=== PATIENT | male | born 1945 | race Caucasian/White ===

== ENCOUNTER 2020-11-12 12:49 | Emergency (ER) | payer MEDICARE, SELFPAY ==
[2020-11-12 12:50] VITALS: BP 120/71; PULSE 46; RESP 18; TEMP 36.8; O2SAT 97; BMI 27.2
--- NOTE | 2020-11-12 14:29 | EKG12_ITS ---
Test Reason : GENERAL ILLNESS Blood Pressure : / mmHG Vent. Rate : 036 BPM Atrial Rate : 250 BPM P-R Int : 000 ms QRS Dur : 108 ms QT Int : 484 ms P-R-T Axes : 000 015 021 degrees QTc Int : 374 ms Atrial fibrillation Poor R wave progression Abnormal ECG Confirmed by ANTONIA LANGFORD, MELONY ([id number]), editorial writer ISRAEL GARCIA ([id number]) on 11/14/2020 10:06:25 AM Referred By: LATA Confirmed By:MELONY KNIGHT MD
--- NOTE | 2020-11-12 14:29 | RAD_ITS ---
History: cough EXAMINATION/TECHNIQUE: XR Chest 1 View: Portable COMPARISON: March 17, 2011 FINDINGS: LINES/DEVICES: None. LUNGS: No consolidation, edema or effusion. Calcified granuloma again noted at the left lung base. No pneumothorax. MEDIASTINUM AND CARDIOVASCULAR STRUCTURES: Cardiac silhouette not enlarged. Central airways and mediastinal contour are unremarkable. BONES AND SOFT TISSUES: Unremarkable. RAD/Chest 1 View (Portable) IMPRESSION: No radiographic evidence of acute cardiopulmonary disease. at 1648 Reported and signed by: Dereck Keen MD Electronically Signed: Dercek Keen MD at 16:47 EDT Tel , Service support ,
[2020-11-12 14:52] VITALS: BP 133/66; PULSE 39; RESP 16; O2SAT 95
--- NOTE | 2020-11-12 15:05 | EX.ED.DYSGE1 ---
HPI History of Present Illness Chief Complaint: General Illness Informant: patient Onset/Context/Timing Onset: Yesterday Context: Gradual Onset Timing: Continuous Quality: Aching Location: Generalized Worsened by: Nothing Relieved by: Nothing Narrative Narrative: Patient presents with headache, nausea, vomiting, myalgias, and arthralgias that have been getting worse since yesterday. Patient is concerned about possible COVID-19. Patient admits to subjective chills but denies any fevers. Patient states he has not been able to keep anything down. Patient also states he has been unsteady on his feet. Patient states he has been aching all over. Patient admits to a headache. Patient denies any chest pain or shortness of breath. [facility] Medical History (Updated 11/12/20 @ 18:[address] Hiram Bower DO) Coronary artery disease Allergy/AdvReac Type Severity Reaction Status Date / Time No Known Allergies Allergy Verified 11/12/20 12:50 Surgical History History of herniorrhaphy Hx of heart artery stent Social History Smoking Status: Former smoker ROS ROS ED Constitutional Constitutional ED: Reports chills and subjective; Denies fever(s) Eyes Eyes: Denies blurry vision or change in vision ENT ENT ED: Denies rhinorrhea or sore throat Cardiovascular Cardiovascular: Denies chest pain or palpitations Respiratory/Chest Respiratory/Chest: Denies cough or dyspnea Gastrointestinal Gastrointestinal: Reports nausea and vomiting Genitourinary Genitourinary ED: Denies dysuria or hematuria Musculoskeletal Musculoskeletal: Reports arthralgias and myalgias; Denies back pain or neck pain Integumentary Denies abscess or rash Neurologic Neurologic: Reports headache(s); Denies weakness Allergic/Immunologic Allergic/Immunologic ED: Denies mouth swelling or urticaria EXAM Physical Exam Const Vital Signs: 11/12/20 12:50 11/12/20 14:52 11/12/20 16:00 Temperature 98.3 F Temperature Source Temporal Pulse Rate 46 L 39 L 41 L Respiratory Rate 18 16 18 Respiratory Effort Normal Respiratory Pattern Normal Blood Pressure 120/71 133/66 H 144/63 H Blood Pressure Mean 87 88 90 Pulse Ox 97 95 96 Oxygen Delivery Method Room Air Room Air Room Air 11/12/20 18:16 Temperature Temperature Source Pulse Rate 40 L Respiratory Rate 18 Respiratory Effort Respiratory Pattern Blood Pressure 140/73 H Blood Pressure Mean Pulse Ox 96 Oxygen Delivery Method Positive well nourished and well developed General Appearance ED: well developed HEENT Reports moist mucous membranes Neck supple and no JVD Resp normal respiratory effort and clear to auscultation bilaterally Cardio regular rate, regular rhythm and no murmurs GI normal to inspection, nondistended, normoactive bowel sounds and non-tender Palpation: soft Extremity normal to inspection General Extremety ED: Negative for edema or tenderness General Extremity: Negative for edema Neuro oriented x3, CN's II-XII intact bilaterally and no sensory deficits noted Sensorium / Orientation: alert Motor Exam: strength 5/5 throughout Psych mental status grossly normal Skin no rashes or lesions noted MDM MDM MDM Narrative Medical decision making narrative: CBC and comprehensive metabolic profile were obtained and were essentially within normal limits. Lactate was normal. High-sensitivity troponin was normal. EKG showed atrial fibrillation with a rate of 36. There are no acute ST or T wave changes. Patient states he has a history of A. fib and history of low heart rate. Patient states this is nothing new for him. Previous EKG dated 03/17/2011 showed a sinus rhythm with a rate of 70. Portable 1 view chest x-ray was obtained. On my interpretation, lung hughes are clear. There is normal cardiac silhouette. Bony thorax is normal. There is no acute process noted. Radiologist also interpreted the x-ray and agrees. COVID-19 rapid antigen was obtained and was negative. Patient was feeling somewhat better on reevaluation. Patient was given a dose of morphine. Patient was instructed to drink plenty of fluids. Patient was instructed to take Tylenol or ibuprofen as needed for any pain or fevers. Patient was instructed to follow-up with his primary care physician in 5 to 7 days. Patient understood and was agreeable with the plan. All questions were answered. Lab Data Attestation: I reviewed the patient's lab results. Labs: Laboratory Results - last 24 hr 11/12/20 11/12/20 11/12/20 15:20 15:30 15:30 WBC 9.1 RBC 4.35 L Hgb 13.5 Hct 41.3 MCV 94.9 H MCH 31.0 MCHC 32.7 RDW Std Deviation 48.1 H RDW Coeff of Stefano 13.7 Plt Count 143 L MPV 10.5 Immature Gran % (Auto) 0.300 Neut % (Auto) 68.3 Lymph % (Auto) 19.8 [place] % (Auto) 11.1 H Eos % (Auto) 0.3 Baso % (Auto) 0.2 Absolute Neuts (auto) 6.2 Absolute Lymphs (auto) 1.80 Nucleated RBC % 0 Sodium 136 Potassium 4.0 Chloride 103 Carbon Dioxide 29.0 Anion Gap 4 L BUN 18 Creatinine 1.22 Estim Creat Clear Calc 55.66 Est GFR (MDRD) Af Amer 74 Est GFR (MDRD) Non-Af 61 BUN/Creatinine Ratio 14.8 Glucose 104 Lactic Acid 0.9 Calcium 9.0 Total Bilirubin 1.80 H AST 14 L ALT 32 Alkaline Phosphatase 63 Troponin I High Sens 14 Total Protein 7.1 Albumin 3.8 Globulin 3.3 Albumin/Globulin Ratio 1.2 Radiography Chest X-Ray - ED: 1 View, Read by ED Physician, Read by Radiologist and Normal Diagnostic Testing: Radiology Impression Chest X-Ray 11/12/20 14:29 IMPRESSION: No radiographic evidence of acute cardiopulmonary disease. at 1648 Reported and signed by: Dereck Keen MD Electronically Signed: Dereck Keen MD at 16:47 EDT Tel , Service support , EKG Initial EKG: Attestation: I personally reviewed and interpreted this EKG as follows: Interpretation: No Acute Injury Pattern and Atrial Fibrillation (36) Prior EKG tracings: available for review Prior: Changed (Atrial fibrillation is new compared to previous EKG dated 03/17/2011) Discharge Plan Triage Chief Complaint: General Illness ED Provider: Hiram Bower Dx/Rx/DC Orders Clinical Impression: Viral illness Instructions: ED Viral Syndrome (Adult) Primary Care Provider: Imer Cruz Referrals: Imer Cruz MD [Primary Care Provider] - 3-5 Days Disposition Disposition: Home, Self Care Discharge Date/Time: 11/12/20 18:22
[2020-11-12 15:46] LABS: Absolute Neutrophil Count 6.2 X10^3/uL (2.0-7.7); Basophil# 0.02 X10^3/uL; Basophil% 0.2 % (0-1); Eosinophil# 0.03 X10^3/uL; Eosinophils% 0.3 % (0-5); Hematocrit 41.3 % (40-54); Hemoglobin 13.5 g/dL (13.0-16.5); Lymphocyte % 19.8 % (19-41); Mean Corp Hgb Conc 32.7 g/dL (32-36); Mean Corpuscular Volume 94.9 fL (80-94); Mean Platelet Vol. 10.5 fl (6.2-12.0); Monocyte# 1.01 X10^3/uL; Monocyte% 11.1 % (0-10); NRBC Flagged by Analyzer 0 % (0-5); Neutrophil # 6.21 X10^3/uL (2.7-7.7); Neutrophil % 68.3 % (47-70); Platelet Count 143 K/mm3 (150-450); RBC Distribution Width CV 13.7 % (11.6-14.6); RBC Distribution Width SD 48.1 fl (35.1-43.9); Red Blood Count 4.35 M/mm3 (4.6-6.2); White Blood Count 9.1 K/mm3 (4.4-11.0)
[2020-11-12 16:00] VITALS: BP 144/63; PULSE 41; RESP 18; O2SAT 96
[2020-11-12 16:06] LABS: Lactic Acid 0.9 mmol/L (0.4-1.9)
[2020-11-12 16:07] LABS: ALB/GLOB Ratio 1.2 RATIO (0.9-2.4); AST(SGOT) 14 U/L (15-37); Alanine Aminotransfer ALT/SGPT 32 U/L (16-61); Albumin, Serum 3.8 g/dL (3.2-5.0); Alkaline Phosphatase 63 U/L (45-117); Anion Gap 4 (5-15); BUN 18 mg/dL (7-18); BUN/Creat Ratio 14.8 RATIO (10-20); Chloride 103 mmol/L (98-107); Creatinine, Serum 1.22 mg/dL (0.70-1.30); EST Glomerular Filtration Rate 61 mL/min (>60); Est Glom Filt Rate - Afr Amer 74 mL/min (>60); Estimated Creatinine Clearance 55.66 ml/min; Globulin 3.3 g/dL (2.2-4.2); Glucose 104 mg/dL (74-106); Protein, Total 7.1 g/dL (6.4-8.2); Sodium Level 136 mmol/L (136-145); Troponin-I HS 14 pg/mL (3.0-78.0)
[2020-11-12] MEDS: Morphine 4 MG/ML Syringe IV (18:11)
[2020-11-12 18:16] VITALS: BP 140/73; PULSE 40; RESP 18; O2SAT 96
== END 2020-11-12 18:22 | disposition home or self-care (01) ==
PROVIDERS: Emergency Provider Emergency Medicine; PCP Family Medicine
DX: B34.9 Viral infection, unspecified (principal); I25.10 Atherosclerotic heart disease of native coronary artery without angina pectoris; Z95.5 Presence of coronary angioplasty implant and graft; Z87.891 Personal history of nicotine dependence
CPT/HCPCS: 36415; 71045; 80053; 83605; 84484; 85025; 87040; 87426; 93005; 96374; 99284; A4216

== ENCOUNTER 2020-11-13 10:30 | Observation (INO) | payer MEDICARE, SELFPAY ==
[2020-11-13] VITALS (9 sets, daily range): BP systolic 116–157; BP diastolic 63–84; PULSE 41–56; RESP 15–20; TEMP 36.4–36.6; O2SAT 95–100; BMI 27.6; BMI 26.8
--- NOTE | 2020-11-13 10:47 | EKG12_ITS ---
Test Reason : Blood Pressure : / mmHG Vent. Rate : 045 BPM Atrial Rate : 079 BPM P-R Int : 000 ms QRS Dur : 108 ms QT Int : 466 ms P-R-T Axes : 000 005 052 degrees QTc Int : 403 ms Atrial fibrillation Low voltage QRS (Limb Leads) Inferior infarct , age undetermined , cannot be excluded Poor R wave progression Anterior CO, age undetermined, cannot be excluded Abnormal ECG Confirmed by ANTONIA LANGFORD, MELONY ([id number]), material expeditor ISRAEL GARCIA ([id number]) on 11/18/2020 9:42:05 AM Referred By: TOMA/AMBAR Confirmed By:MELONY KNIGHT MD
--- NOTE | 2020-11-13 10:47 | CT_ITS ---
History: confusion TECHNIQUE: Routine carotid CT angiogram protocol was performed without and with IV contrast. In addition, images were obtained of the [place] of [place]. Nascet criteria using the distal ICAs for comparison were used for evaluation of stenoses. 3D reconstructions were reviewed. A radiation dose optimization technique was used for this scan. IV Contrast dosage and agent: IV 100mL [id number] COMPARISON: None FINDINGS: --NECK: Mild calcific plaquing at both carotid bifurcations AORTIC ARCH AND BRANCHES: Normal anatomy, patent. RIGHT CCA: No occlusion, significant stenosis or dissection. RIGHT ICA: No occlusion, significant stenosis or dissection. LEFT CCA: No occlusion, significant stenosis or dissection. LEFT ICA: No occlusion, significant stenosis or dissection. RIGHT VERTEBRAL ARTERY: No occlusion, significant stenosis or dissection. LEFT VERTEBRAL ARTERY: No occlusion, significant stenosis or dissection. NECK SOFT TISSUES: Unremarkable. LUNG APICES: Small emphysematous blebs noted within the lung apices. BONES: Unremarkable. --HEAD: --Anterior circulation: ICAs: No significant stenosis at the intracranial/visualized segments. ACAs: No significant stenosis at the visualized segments. ACOM: Present. MCAs: No significant stenosis at the visualized segments. --Posterior circulation: PCOMs: Present on the right lodge attendant: No significant stenosis at the visualized segments. BASILAR ARTERY: No significant stenosis. VERTEBRAL ARTERIES: No significant stenosis at the intradural/visualized segments. There is enlargement of the right posterior cerebral artery which feeds a 3.6 cm arteriovenous malformation is present along the right parieto-occipital junction. There are prominent draining veins along the adjacent right cerebral hemisphere. 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 No evidence of vessel stenosis or occlusion. No intracranial hemorrhage or mass-effect. Individualized dose optimization techniques were used for this CT. at 1145 Reported and signed by: Dereck Keen MD Electronically Signed: Dereck Keen MD at 11:44 EDT Tel , Service support ,
--- NOTE | 2020-11-13 10:49 | ED.VIS.STROK ---
HPI History of Present Illness Chief Complaint: Confusion Informant: patient and spouse/S.O. Onset/Context/Timing Onset: Days Context: Gradual Onset Timing: Continuous Current Severity: Moderate Maximum Severity: Moderate Associated Symptoms Associated Symptoms: Positive for Headache, Nausea and Vomiting Narrative Narrative: 75-year-old male history of coronary disease with 2 stents. History of hypertension A. fib on . No stroke history. He is not diabetic. Reportedly on Wednesday began not feeling well Wednesday had headache with nausea and vomiting. He has had a history of headaches before in the past. There is been no falls or head trauma. No fever. He was seen in a local urgent care on Wednesday sent to the ER. His evaluation here was negative including labs, negative Covid test and negative chest x-ray. He was treated for his headache and discharged home. Today he seems more confused per his and is having difficulty seeing things. Patient is also anxious and emotionally upset by this. Prior similar symptoms: No Recent Illness/Hospitalization: No PFSH PFSH Medical History Coronary artery disease Allergy/AdvReac Type Severity Reaction Status Date / Time No Known Allergies Allergy Verified 11/13/20 10:31 Surgical History History of herniorrhaphy Hx of heart artery stent Social History Smoking Status: Former smoker ROS ROS ED ROS Narrative Headache, nausea and vomiting, confusion. Review of Systems ROS Unobtainable: Denies due to encephalopathy Constitutional Constitutional ED: Denies chills or fever(s) Eyes Eyes: Reports change in vision ENT ENT ED: Denies ear pain or sore throat Cardiovascular Cardiovascular: Denies chest pain or palpitations Respiratory/Chest Respiratory/Chest: Denies cough or dyspnea Gastrointestinal Gastrointestinal: Reports nausea and vomiting; Denies abdominal pain, constipation or diarrhea Genitourinary Genitourinary ED: Denies dysuria or hematuria Musculoskeletal Musculoskeletal: Denies arthralgias or myalgias Integumentary Denies rash Neurologic Neurologic: Reports headache(s); Denies paresthesias or weakness Psychiatric Psychiatric: Denies depression Endocrine Endocrinology: Denies polyuria Hematologic/Lymphatic Hematologic/Lymphatic: Denies easy bruising Allergic/Immunologic Allergic/Immunologic ED: Denies urticaria EXAM Physical Exam Narrative Exam Narrative: Older male accompanied by his . Vital signs are stable and is afebrile. He does not look septic or toxic. He is anxious due to his current symptoms. H EENT exam unremarkable. No facial droop. Normal speech. Pupils round reactive light extra motions are intact. Neck nontender. No lymphadenopathy. No meningismus. Lungs clear to auscultation. Heart rate in the 50s which reportedly is his baseline bradycardia. A. fib on the monitor. No murmur. Abdomen soft nontender. Patient moving all 4 extremities. He has normal motor strength. Fingertip to nose within normal limits. Dorsi plantar flexion intact. He has no motor deficits of the upper or lower extremities. Neurologically is awake. He is alert. He knows the president. He cannot answer and say what day, month or year it is. He thought it was 2000. His speech is clear there is no facial droop. Const Vital Signs: 11/13/20 10:31 Temperature 97.8 F Temperature Source Oral Pulse Rate 56 L Respiratory Rate 20 H Blood Pressure 151/84 H Blood Pressure Mean 106 Pulse Ox 99 Oxygen Delivery Method Room Air Positive well nourished and well developed; Negative for obese, cachectic, contractures or unkempt General Appearance ED: well developed and NAD; Negative for unkempt, cachectic or contractures Nutritional Appearance: Negative for cachectic or obese HEENT Reports moist mucous membranes atraumatic; Negative for trauma Eyes PERRL and EOMs intact bilaterally Neck no lymphadenopathy, supple and no JVD General: Negative for tenderness Chest Wall inspection of chest normal and palpation of chest normal Resp normal respiratory effort and clear to auscultation bilaterally Auscultation: Negative for rales, rhonchi or wheezes Cardio no murmurs Cardio Narrative: A. fib rate in the 50s. Rate: bradycardia Rhythm: Negative for regular rhythm Heart Sounds: S1 normal and S2 normal GI normal to inspection, nondistended, normoactive bowel sounds, soft to palpation, non-tender, non-distended and no masses Auscultation: normoactive bowel sounds Palpation: Negative for tender, guarding or rebound tenderness present Back/Spine no CVA tenderness General Back: Negative for CVA tenderness Cervical Spine: Negative for cervical spine tenderness Extremity normal to inspection General Extremety ED: Negative for deformity, edema or tenderness General Extremity: Negative for deformity or edema Neuro CN's II-XII intact bilaterally Sensorium / Orientation: alert, oriented to person, oriented to place and confused; Negative for oriented to time, lethargic or stuporous Speech: speech normal Motor Exam: strength 5/5 throughout; Negative for general weakness Psych mental status grossly normal Appearance: Negative for unkempt Mood & Affect: anxious; Negative for depressed Skin no wounds General Skin Exam: Negative for jaundice Lesions: no lesions Rashes: no rashes and No rashes noted STROKE Vital Signs/Narrative: Vital Signs Temp Pulse Resp BP Pulse Ox 11/13/20 10:31 97.8 F 56 L 20 H 151/84 H 99 Inital Vital Signs reviewed: Yes MDM MDM MDM Narrative Medical decision making narrative: Older male with change in mental status, headache on Eliquis. He is confused to date and time. He has no motor deficits. CAT scan labs are being obtained. I did review his work-up from yesterday which was unremarkable. Repeat exam patient is doing well at 11:52 AM. I discussed all test results with both he and his . I will admit him for further evaluation of the hospitalist on page. Lab Data Attestation: I reviewed the patient's lab results. Lab results narrative: CBC shows a white count of 8. Hemoglobin 14. Platelet count is a little low at 143,000. PT/INR 15 1. Electrolytes unremarkable sodium 137. Gap of 3. Creatinine 1.2. Liver enzymes unremarkable. Urinalysis normal. Labs: Laboratory Results - last 24 hr 11/13/20 11/13/20 11/13/20 10:36 10:36 10:57 WBC 8.6 RBC 4.42 L Hgb 14.1 Hct 42.4 MCV 95.9 H MCH 31.9 MCHC 33.3 RDW Std Deviation 49.1 H RDW Coeff of Stefano 13.8 Plt Count 143 L MPV 10.7 Immature Gran % (Auto) 0.100 Neut % (Auto) 56.8 Lymph % (Auto) 29.8 [place] % (Auto) 11.5 H Eos % (Auto) 1.2 Baso % (Auto) 0.6 Absolute Neuts (auto) 4.9 Absolute Lymphs (auto) 2.56 Nucleated RBC % 0 PT 15.3 H INR 1.3 Sodium 137 Potassium 4.3 Chloride 105 Carbon Dioxide 29.0 Anion Gap 3 L BUN 16 Creatinine 1.23 Estim Creat Clear Calc 55.20 Est GFR (MDRD) Af Amer 73 Est GFR (MDRD) Non-Af 61 BUN/Creatinine Ratio 13.0 Glucose 92 Calcium 9.1 Total Bilirubin 1.70 H AST 18 ALT 33 Alkaline Phosphatase 64 Total Protein 7.4 Albumin 3.9 Globulin 3.5 Albumin/Globulin Ratio 1.1 Urine Color Urine Clarity Urine pH Ur Specific [place] Urine Protein Urine Glucose (UA) Urine Ketones Urine Occult Blood Urine Nitrite Urine Bilirubin Urine Urobilinogen Ur Leukocyte Esterase Urine RBC Urine WBC Ur Squamous Epith Cells Urine Bacteria Urine Mucus 11/13/20 11:00 WBC RBC Hgb Hct MCV MCH MCHC RDW Std Deviation RDW Coeff of Stefano Plt Count MPV Immature Gran % (Auto) Neut % (Auto) Lymph % (Auto) [place] % (Auto) Eos % (Auto) Baso % (Auto) Absolute Neuts (auto) Absolute Lymphs (auto) Nucleated RBC % PT INR Sodium Potassium Chloride Carbon Dioxide Anion Gap BUN Creatinine Estim Creat Clear Calc Est GFR (MDRD) Af Amer Est GFR (MDRD) Non-Af BUN/Creatinine Ratio Glucose Calcium Total Bilirubin AST ALT Alkaline Phosphatase Total Protein Albumin Globulin Albumin/Globulin Ratio Urine Color Yellow Urine Clarity Clear Urine pH 7.0 Ur Specific [place] 1.005 Urine Protein Negative Urine Glucose (UA) Normal Urine Ketones Negative Urine Occult Blood Negative Urine Nitrite Negative Urine Bilirubin Negative Urine Urobilinogen Normal Ur Leukocyte Esterase 25 H Urine RBC 0 SEEN Urine WBC 0 SEEN Ur Squamous Epith Cells 0 SEEN Urine Bacteria 0 SEEN Urine Mucus 0 SEEN Radiography Diagnostic Testing: Radiology Impression Head/Neck CTA 11/13/20 10:47 IMPRESSION: 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 No evidence of vessel stenosis or occlusion. No intracranial hemorrhage or mass-effect. Individualized dose optimization techniques were used for this CT. at 1145 Reported and signed by: Dereck Keen MD Electronically Signed: Dereck Keen MD at 11:44 EDT Tel , Service support , CAT scan read by the radiologist and reviewed by me. Shows an arteriovenous malformation but no acute process. No intracranial bleed. No stroke. Rhythm Strip Rhythm Strip: A-fib Rate: 45 Ectopy: None EKG Initial EKG: Interpretation: Atrial Fibrillation Comments: Atrial fibrillation rate of 45. No acute signs of [place] or ischemia. Unchanged from prior EKG from yesterday. Prior EKG tracings: available for review Prior: Unchanged Stroke Documentation Questions Stroke Team Activated: No Discharge Plan Triage Chief Complaint: Confusion ED Provider: Steven Laguna Dx/Rx/DC Orders Clinical Impression: Acute alteration in mental status Primary Care Provider: Imer Cruz Referrals: Imer Cruz MD [Primary Care Provider] - Disposition Disposition: Acute Care Hospital [facility]
[2020-11-13 11:04] LABS: Absolute Lymphocyte Count 2.56 X10^3/uL (0.83-4.51); Absolute Neutrophil Count 4.9 X10^3/uL (2.0-7.7); Basophil# 0.05 X10^3/uL; Basophil% 0.6 % (0-1); Eosinophils% 1.2 % (0-5); Hematocrit 42.4 % (40-54); Hemoglobin 14.1 g/dL (13.0-16.5); Lymphocyte # 2.56 X10^3/ul (0.83-4.51); Lymphocyte % 29.8 % (19-41); Mean Corp Hgb Conc 33.3 g/dL (32-36); Mean Corpuscular Hgb 31.9 pg (27.0-32.0); Mean Corpuscular Volume 95.9 fL (80-94); Mean Platelet Vol. 10.7 fl (6.2-12.0); Monocyte# 0.99 X10^3/uL; Monocyte% 11.5 % (0-10); NRBC Flagged by Analyzer 0 % (0-5); Neutrophil # 4.89 X10^3/uL (2.7-7.7); Neutrophil % 56.8 % (47-70); Platelet Count 143 K/mm3 (150-450); RBC Distribution Width CV 13.8 % (11.6-14.6); RBC Distribution Width SD 49.1 fl (35.1-43.9); Red Blood Count 4.42 M/mm3 (4.6-6.2); White Blood Count 8.6 K/mm3 (4.4-11.0)
[2020-11-13 11:12] LABS: Bacteria 0 SEEN /hpf (None Seen); Color, Urine Yellow (Yellow); Glucose, Dipstick Normal (Normal); Ketone-Dipstick Negative (Negative); Leukocyte Esterase-Dipstick 25 /ul (Negative); Mucous, Urine 0 SEEN /hpf (<or=2+); Nitrite-Dipstick Negative (Negative); Occult Blood-Urine Negative /ul (Negative); Protein-Dipstick Negative (Negative); Red Blood Cells-Urine 0 SEEN /hpf (0-5); Specific Gravity, Urine 1.005 (1.002-1.030); Squamous Epithelial Cells - UA 0 SEEN /hpf (0-5); Urine Bilirubin Dipstick Negative (Negative); Urine Clarity Clear (Clear); Urine Urobilinogen Normal (Normal); White Blood Cells 0 SEEN /hpf (0-5)
[2020-11-13 11:17] LABS: International Normalized Ratio 1.3; Prothrombin Time (Protime)PT. 15.3 SECONDS (11.7-14.9)
[2020-11-13 11:19] LABS: ALB/GLOB Ratio 1.1 RATIO (0.9-2.4); AST(SGOT) 18 U/L (15-37); Alanine Aminotransfer ALT/SGPT 33 U/L (16-61); Albumin, Serum 3.9 g/dL (3.2-5.0); Alkaline Phosphatase 64 U/L (45-117); Anion Gap 3 (5-15); BUN 16 mg/dL (7-18); Calcium,Total 9.1 mg/dL (8.5-10.1); Chloride 105 mmol/L (98-107); Creatinine, Serum 1.23 mg/dL (0.70-1.30); EST Glomerular Filtration Rate 61 mL/min (>60); Est Glom Filt Rate - Afr Amer 73 mL/min (>60); Globulin 3.5 g/dL (2.2-4.2); Glucose 92 mg/dL (74-106); Potassium 4.3 mmol/L (3.5-5.1); Protein, Total 7.4 g/dL (6.4-8.2); Sodium Level 137 mmol/L (136-145)
--- NOTE | 2020-11-13 11:56 | NURSING ---
DR KAY CHUA
--- NOTE | 2020-11-13 12:02 | MRI_ITS ---
EXAM: MR HEAD WITHOUT INTRAVENOUS CONTRAST : 1945 CLINICAL INDICATION: altered mental status TECHNIQUE: Multiplanar and multisequence MR images of the brain were obtained without intravenous contrast. This report was created using [employer] report generation technology. COMPARISON: CTA head November 13, 2020 FINDINGS: BRAIN AND EXTRA-AXIAL SPACES: There is no abnormal diffusion weighted signal intensity to suggest an acute ischemic event. Several small foci of increased T2 signal intensity within the cerebral white consistent with chronic microvascular disease. No intra- or extra-axial hemorrhage. No intracranial mass or mass effect. Posterior fossa structures are unremarkable. Ventricles are appropriate for age. No hydrocephalus. Basal cisterns are patent. SELLA: Unremarkable. Normal sella turcica, pituitary gland, infundibular stalk, optic chiasm and hypothalamus. AUDITORY SYSTEM: Unremarkable. The internal auditory canals are patent. BONES/JOINTS: Unremarkable. No discrete lytic or blastic abnormalities. SINUSES: Unremarkable as visualized. Clear. MASTOID AIR CELLS: Unremarkable as visualized. Clear. ORBITS: Unremarkable as visualized. Both globes, extraocular muscles, optic nerves and retrobulbar fat appear unremarkable. VASCULATURE: Dilated vessels along the right parieto-occipital junction noted related to the anterior venous malformation. The prominence of the right posterior cerebral artery and superficial cerebral veins of the right parietal and occipital lobes again noted. No evidence of hemorrhage. MRI/Brain without Contrast IMPRESSION: 1. Right parieto-occipital AVM. 2. No acute ischemia or hemorrhage.. at 1441 Reported and signed by: Dereck Keen MD Electronically Signed: Dereck Keen MD at 14:40 EDT Tel , Service support ,
--- NOTE | 2020-11-13 12:03 | HP.PCM.HOS_ITS ---
HPI - General General Date of Admission: 11/13/20 Date of Service: 11/13/20 Chief Complaint: Disorientation HPI Narrative RG KINSEY, is a 75 M with past medical history is again for hypothyroidism, paroxysmal atrial fibrillation on systemic anticoagulation who presents with disorientation. Patient symptoms started a day prior to his admission. He was evaluated in the ED discharged home. He woke up on the morning of his admission more confused according to the . Per patient's patient was not able to identify the front door. He also did express the fact that the body of the abdomen was: On the head. Was brought to the emergency department. Head CT was negative for acute CVA. He was however admitted for subsequent evaluation. Patient was found to be simply bradycardic in the ER with heart rates from the mid 35-45. Per patient's this is normal for the patient and he had been evaluated at [facility] and was felt pacemaker was not indicated at this point since patient was not symptomatic. [facility] Medical History Coronary artery disease Home Medications apixaban [Eliquis] 5 mg PO BID 11/13/20 [History Last Taken Unknown] aspirin 81 mg PO DAILY 11/13/20 [History Last Taken Unknown] atorvastatin 20 mg PO QHS 11/13/20 [History Last Taken Unknown] levothyroxine 125 mcg PO DAILY 11/13/20 [History Last Taken Unknown] lisinopril 2.5 mg PO DAILY 11/13/20 [History Last Taken Unknown] nitroglycerin 0.4 mg SUBLINGUAL PRN PRN 11/13/20 [History Last Taken Unknown] tamsulosin 0.4 mg PO DAILY 11/13/20 [History Last Taken Unknown] Allergy/AdvReac Type Severity Reaction Status Date / Time No Known Allergies Allergy Verified 11/13/20 10:31 Family History Father No problems noted. Surgical History History of herniorrhaphy Hx of heart artery stent Social History Smoking Status: Former smoker ROS Review of Systems ROS Unobtainable: due to mental status Vital Signs Vital Signs Vital Signs: 11/13/20 10:31 11/13/20 11:58 Temperature 97.8 F Temperature Source Oral Pulse Rate 56 L 43 L Respiratory Rate 20 H 15 Blood Pressure 151/84 H 123/63 H Blood Pressure Mean 106 83 Pulse Ox 99 98 Oxygen Delivery Method Room Air Room Air Weight Weight: 92.6 kg Body Mass Index (BMI) 27.6 Physical Exam Narrative GENERAL: In no apparent distress HEENT: Atraumatic; EYES; Anicteric, Normal Conjunctiva NECK; supple, normal thyroid, RESPIRATORY: Diminished to auscultation CARDIOVASCULAR: Regular S1 S2, GI: soft, normoactive bowel sounds, : No Renal angle tenderness; EXTREMITIES: No edema, no clubbing, MUSCULOSKELETAL: no muscle waisting NEURO: Awake; but disoriented, no lateralizing signs. SKIN: No Rash PSYCH; Flat affect Results Lab / Micro Data Result Diagrams: 11/13/20 10:36 11/13/20 10:36 Labs: Laboratory Results - last 24 hr 11/13/20 10:36: WBC 8.6, RBC 4.42 L, Hgb 14.1, Hct 42.4, MCV 95.9 H, MCH 31.9, MCHC 33.3, RDW Std Deviation 49.1 H, RDW Coeff of Stef[place] 13.8, Plt Count 143 L, MPV 10.7, Immature Gran % (Auto) 0.100, Neut % (Auto) 56.8, Lymph % (Auto) 29.8, [place] % (Auto) 11.5 H, Eos % (Auto) 1.2, Baso % (Auto) 0.6, Absolute Neuts (auto) 4.9, Absolute Lymphs (auto) 2.56, Nucleated RBC % 0 11/13/20 10:36: Sodium 137, Potassium 4.3, Chloride 105, Carbon Dioxide 29.0, Anion Gap 3 L, BUN 16, Creatinine 1.23, Estim Creat Clear Calc 55.20, Est GFR (MDRD) Af Amer 73, Est GFR (MDRD) Non-Af 61, BUN/Creatinine Ratio 13.0, Glucose 92, Calcium 9.1, Total Bilirubin 1.70 H, AST 18, ALT 33, Alkaline Phosphatase 64, Total Protein 7.4, Albumin 3.9, Globulin 3.5, Albumin/Globulin Ratio 1.1 11/13/20 10:57: PT 15.3 H, INR 1.3 11/13/20 11:00: Urine Color Yellow, Urine Clarity Clear, Urine pH 7.0, Ur Specific [place] 1.005, Urine Protein Negative, Urine Glucose (UA) Normal, Urine Ketones Negative, Urine Occult Blood Negative, Urine Nitrite Negative, Urine Bilirubin Negative, Urine Urobilinogen Normal, Ur Leukocyte Esterase 25 H, Urine RBC 0 SEEN, Urine WBC 0 SEEN, Ur Squamous Epith Cells 0 SEEN, Urine Bacteria 0 SEEN, Urine Mucus 0 SEEN Rhythm Strip Rhythm Strip: A-fib Rate: 45 Ectopy: None Radiology Impression Head/Neck CTA 11/13/20 10:47 IMPRESSION: 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 No evidence of vessel stenosis or occlusion. No intracranial hemorrhage or mass-effect. Individualized dose optimization techniques were used for this CT. at 1145 Reported and signed by: Dereck Keen MD Electronically Signed: Dereck Keen MD at 11:44 EDT Tel , Service support , Assessment & Plan Assessment/Plan (1) TGA (transient global amnesia): PLAN: Patient is a 75-year-old gentleman admitted with a 2-day history of confusion 1. Transient global amnesia ?Patient has been admitted to a monitored bed undergoing subsequent evaluation with an MRI to rule out acute CVA. Patient currently remains afebrile his SARS-CoV-2 assay came back negative. There is no indication of encephalitis or meningitis at this point 2. Bradycardia ?Secondary to A. fib with slow ventricular response. Per patient's patient has been evaluated at [facility] by an laboratory specialist it was felt pacemaker was not indicated. Consult placed to Dr. Zazueta despite 3. Hypothyroidism - Patient is on levothyroxine home dose continued 4. BPH ?Patient is on tamsulosin 5. A. fib with slow ventricular response ?Patient is on systemic anticoagulation with Eliquis did continue 6. DVT prophylaxis on Eliquis no need for additional orders Advance planning; did discuss with the patient's family () regarding advanced directives as well as CODE STATUS. Did explain the various scenarios involved ( FULL CODE, DNR CCA, DNR CCA with no intubation, and DNR CC and what each meant) patient's did state patient has a prior living will and the CODE STATUS is DNR CCA. Order was placed. Time spent on discussion 18 minutes. Charges/Coding Visit Charges OBSV E&M: 22765 Initial observation care L3 Procedures Hospitalists Procedures: 88548 Advncd Care Plan 30 Min
--- NOTE | 2020-11-13 12:03 | NURSING ---
PCU OBS KITTOE MENTAL STATUS CHANGE
[2020-11-13 13:16] LABS: Troponin-I HS 13 pg/mL (3.0-78.0)
--- NOTE | 2020-11-13 13:20 | ECHOD_ITS ---
Reason For Study: TIA/CVA Procedure This was a 2D Doppler, Color Flow transthoracic echocardiogram. The study was technically difficult. Exam performed portable in patient room. Left Ventricle Normal LV size. Left ventricular systolic function is normal. The estimated ejection fraction is 55 %. Unable to assess diastolic dysfunction. No regional wall motion abnormalities noted. Right Ventricle Normal RV size. Normal systolic function. Atria The left atrium is mildly enlarged. The right atrium is mildly enlarged. No doppler evidence for ASD. Bubble contrast study negative for right to left interatrial shunt. Mitral Valve There is no mitral annular calcification. Normal mitral valve. Trivial mitral valve insufficiency. Tricuspid Valve Normal tricuspid valve. Mild tricuspid valve insufficiency. Right ventricular systolic pressure estimated to be 28 mmHg. Aortic Valve The aortic valve is not well visualized. Pulmonic Valve The pulmonic valve is not well visualized. Great Vessels Normal sized aortic root. Pericardium/Pleural No pericardial effusion. Medication Performed a rapid injection of agitated mix of 9 cc saline and 1cc air to assess for atrial septal defect. MMode/2D Measurements & Calculations LVIDd: 5.0 cm IVSd: 1.1 cm Ao root diam: 3.6 cm LVIDs: 3.0 cm LVPWd: 1.1 cm RVDd: 3.0 cm FS: 40.6 % LAV(MOD-bp): 91.7 ml LA A4 area: 30.8 cm2 LA dimension(2D): 4.5 cm LAV(MOD-bp) Indexed: 42.7 ml/m2 LAV(MOD-sp2): 75.3 ml LAV(MOD-sp4): 105.0 ml Doppler Measurements & Calculations MV E max lidia: 102.0 cm/sec Ao V2 max: 165.3 cm/sec LV V1 max: 93.6 cm/sec Ao max P.9 mmHg LV V1 max P.5 mmHg PA V2 max: 90.6 cm/sec TR max lidia: 251.1 cm/sec TR max P.2 mmHg ECHO/Echo Complete Interpretation Summary The study was technically difficult. Left ventricular systolic function is normal. The estimated ejection fraction is 55 %. The left atrium is mildly enlarged. The right atrium is mildly enlarged. Trivial mitral valve insufficiency. Mild tricuspid valve insufficiency. Right ventricular systolic pressure estimated to be 28 mmHg. Unable to assess diastolic dysfunction. Bubble contrast study negative for right to left interatrial shunt. Ordering Physician: Imer Frankel Referring Physician: Imer Cruz Performed By: Jill Dodd RDCS, RVT
--- NOTE | 2020-11-13 13:41 | PCS.PANDOC ---
PANDEMIC DOCUMENTATION INITIATED: Date: 11/04/2020 Time: 190
[2020-11-13] MEDS: 0.9% Normal Saline 1,000 ML 75 ML IV (14:31)
[2020-11-13 14:41] LABS: Bedside Glucose 103 mg/dL (70-110)
--- NOTE | 2020-11-13 19:43 | PCM.CONS.C ---
Assessment & Plan Assessment/Plan (1) CAD (coronary artery disease): QUALIFIERS: Coronary Disease-Associated Artery/Lesion type: [place] artery [place] vs. transplanted heart: [place] heart Associated angina: without angina Qualified Code(s): I25.10 - Atherosclerotic heart disease of [place] coronary artery without angina pectoris PLAN: The patient has a history of an acute coronary syndrome and subsequent diagnosis of CAD. He states he was evaluated in [place], [place] and then subsequently life flighted to [facility] in [place], [place]. He notes this took place approximately 8 years ago. At that time he underwent evaluation with cardiac catheterization and subsequently received PCI. The details of his hospitalization and procedures are unknown at this time. At the present he appears to be without any ongoing symptoms of acute coronary syndrome. (2) S/P PTCA (percutaneous transluminal coronary angioplasty): PLAN: Again the patient underwent PCI in the past. The details of his procedure are unknown. He appears to be without any ongoing issues related to his underlying CAD process at this time. (3) Atrial fibrillation: QUALIFIERS: Atrial fibrillation type: permanent Qualified Code(s): I48.21 - Permanent atrial fibrillation PLAN: The patient has a history of atrial fibrillation with slow ventricular response. It appears he has been undergoing evaluation by his primary sales planning manager and an timber rider. His recent exercise tolerance test, per his report, stated that his heart rate increased, and thus his sales planning manager elected to postpone any permanent pacemaker placement based upon his bradycardia at this time. Thus at the moment he is being followed by his sales planning manager. He is remaining without any rate limiting medications. (4) HLD (hyperlipidemia): QUALIFIERS: Hyperlipidemia type: unspecified Qualified Code(s): E78.5 - Hyperlipidemia, unspecified PLAN: He should continue risk factor modification medical therapy as deemed appropriate. (5) Benign essential HTN: PLAN: His blood pressure will need to be followed with adjustment of medications as needed. (6) Acute alteration in mental status: PLAN: He has had an alteration in his mental status based upon his concerns of headache and associated symptoms and visual disturbances. It does not appear that he has had an acute change in his underlying cardiovascular status to correlate with the change in his neurologic status. Thus at the present time he will continue his cardiovascular care with medical therapy as deemed appropriate. It does not appear he requires additional cardiac diagnostic studies at this time. He should follow with his primary sales planning manager and his timber rider over time who are monitoring his underlying cardiac condition including his atrial fibrillation with slow ventricular response. In the meantime he should continue noncardiac evaluation care with internal medicine and potentially neurology to assist with his neurologic evaluation and care. Addt'l Comments The above was discussed and reviewed with the patient and his spouse. They were agreeable to this approach. HPI Consult Data Date of Consult: 11/13/20 HPI Narrative HPI Narrative: RG KINSEY, is a 75 year old white male who presents for cardiovascular consultation based upon a history of underlying CAD status post PCI, atrial fibrillation with slow ventricular response, hyperlipidemia, hypertension, in the setting of post migraine headache visual disturbances. The patient states that he follows with sales planning manager from [facility] that evaluates patients in [place], [place] as well as at [facility] in [place], [place] for history of underlying acute coronary syndrome/CAD/PCI as well as a history of atrial fibrillation with a slow ventricular response. He states he underwent recent evaluation by his sales planning manager and an timber rider which also included an exercise tolerance test to reassess his average cardiac rate rhythm response, etc. He was told that he was going to continue to be followed as an outpatient and there were no immediate plans for any additional invasive evaluation and/or permanent pacemaker placement at this time. He states that after experiencing a migraine headache he noticed nausea and not feeling well. He presented to the [facility] emergency department. He was concerned about COVID-19. He underwent evaluation and was considered COVID-19 negative by laboratory studies. He states he received morphine sulfate for his symptoms. He was released home. However today he states he noted visual disturbances and/or loss. He states he would see this jovon and then the trees and then the trees would be absent. He states he would see his dog and then he would only see his dog's head but not the rest of the body. Thus he presented back to the hospital for further evaluation. From a cardiac standpoint he has denied any ongoing chest discomfort or difficulty breathing. There is been no orthopnea or PND or peripheral pitting edema. He has not noted any rapid heart rate sensations. He has not had any near-syncope or syncope. He states his cardiac issues have been chronic and have not significantly changed to correlate with his recent symptoms and/or events. His cardiac enzymes have been negative. His ECG demonstrated atrial fibrillation with a slow ventricular response with low voltage QRS in the limb leads. He has undergone additional evaluation with transthoracic echocardiogram with the results as noted below. He is also undergone additional neurologic evaluation with CT scan and MRI as noted below. [facility], [facility] Medical History (Updated 11/13/20 @ 19:[address] Shamar Mauro MD) Atrial fibrillation Atrial fibrillation Benign essential HTN CAD (coronary artery disease) Coronary artery disease Former smoker HLD (hyperlipidemia) Hypertension Hypothyroidism Migraines Myocardial infarct Home Medications apixaban [Eliquis] 5 mg PO BID 11/13/20 [History Last Taken Unknown] aspirin 81 mg PO DAILY 11/13/20 [History Last Taken Unknown] atorvastatin 20 mg PO QHS 11/13/20 [History Last Taken Unknown] glucosamine HCl 1,200 mg PO BID 11/13/20 [History Last Taken Unknown] levothyroxine 125 mcg PO DAILY 11/13/20 [History Last Taken Unknown] lisinopril 2.5 mg PO DAILY 11/13/20 [History Last Taken Unknown] melatonin 5 mg PO PRN PRN 11/13/20 [History Last Taken Unknown] nitroglycerin 0.4 mg SUBLINGUAL PRN PRN 11/13/20 [History Last Taken Unknown] tamsulosin 0.4 mg PO DAILY 11/13/20 [History Last Taken Unknown] Allergy/AdvReac Type Severity Reaction Status Date / Time No Known Allergies Allergy Verified 11/13/20 10:31 Family History (Updated 11/13/20 @ 12:[address] Imer Frankel MD) Father No problems noted. Surgical History (Updated 11/13/20 @ 19:[address] Shamar Mauro MD) History of herniorrhaphy Hx of heart artery stent S/P PTCA (percutaneous transluminal coronary angioplasty) Social History Smoking Status: Former smoker ROS Constitutional Constitutional: Reports headache(s) and weakness Eyes Eyes: Reports other visual disturbances ENT HEENT: Reports as per HPI Cardiovascular Cardiovascular: Reports as per HPI Respiratory/Chest Respiratory/Chest: Reports as per HPI Gastrointestinal Gastrointestinal: Reports nausea Genitourinary Genitourinary: Reports as per HPI Musculoskeletal Musculoskeletal: Reports as per HPI Integumentary Integumentary: Reports as per HPI Neurologic Neurologic: Reports weakness Physical Exam Const alert, oriented x3 and healthy appearing Orientation / Consciousness: awake HEENT normocephalic, head/scalp atraumatic and hearing grossly normal bilaterally Eyes PERRL, EOMs intact bilaterally and conjunctivae normal Neck full ROM, supple and no JVD Resp clear to auscultation bilaterally Cardio Rhythm: abnormal rhythm irregularly irregular Heart Sounds: S1 normal and S2 normal GI normal to inspection, nondistended, normoactive bowel sounds Extremity no pedal edema Skin no rashes or lesions noted Neuro oriented x3 and moves all extremities Psych mental status grossly normal Procedure Criteria Type of Procedure Procedure Type: Elective Elective Risks - COVID COVID Risk Discussion: The surgeon/proceduralist and patient have discussed in detail the risk of exposure to and/or potential harm posed by the COVID-19 virus with having a surgery/procedure at this time versus the risk of delaying the surgery/procedure. It is not possible to know either the risk of delaying the surgery or procedure or chance of getting an infection with perfect accuracy, but a joint decision was made between the patient and the surgeon/proceduralist to proceed at this time with the scheduled surgery/procedure as indicated on the consent form. Objective Data Vital Signs: Vital Signs Temp Pulse Resp BP Pulse Ox 97.7 F L 42 L 16 157/68 H 96 11/13/20 17:45 11/13/20 17:45 11/13/20 17:45 11/13/20 17:45 11/13/20 17:45 Oxygen Delivery Method Room Air Weight: 197 lb 15.602 oz Body Mass Index (BMI) 26.8 Intake & Output: Intake and Output for Last 24 Hours 11/11/20 11/12/20 11/13/20 23:59 23:59 23:59 Intake Total 240 / 240 Balance 240 / 240 Lab / Micro Data Result Diagrams: 11/13/20 10:36 11/13/20 10:36 Labs: Laboratory Results - last 24 hr 11/13/20 10:36: WBC 8.6, RBC 4.42 L, Hgb 14.1, Hct 42.4, MCV 95.9 H, MCH 31.9, MCHC 33.3, RDW Std Deviation 49.1 H, RDW Coeff of Stefano 13.8, Plt Count 143 L, MPV 10.7, Immature Gran % (Auto) 0.100, Neut % (Auto) 56.8, Lymph % (Auto) 29.8, [place] % (Auto) 11.5 H, Eos % (Auto) 1.2, Baso % (Auto) 0.6, Absolute Neuts (auto) 4.9, Absolute Lymphs (auto) 2.56, Nucleated RBC % 0 11/13/20 10:36: Sodium 137, Potassium 4.3, Chloride 105, Carbon Dioxide 29.0, Anion Gap 3 L, BUN 16, Creatinine 1.23, Estim Creat Clear Calc 55.20, Est GFR (MDRD) Af Amer 73, Est GFR (MDRD) Non-Af 61, BUN/Creatinine Ratio 13.0, Glucose 92, Calcium 9.1, Total Bilirubin 1.70 H, AST 18, ALT 33, Alkaline Phosphatase 64, Total Protein 7.4, Albumin 3.9, Globulin 3.5, Albumin/Globulin Ratio 1.1 11/13/20 10:36: Troponin I High Sens 13 11/13/20 10:36: POC Glucose 103 11/13/20 10:57: PT 15.3 H, INR 1.3 11/13/20 11:00: Urine Color Yellow, Urine Clarity Clear, Urine pH 7.0, Ur Specific [place] 1.005, Urine Protein Negative, Urine Glucose (UA) Normal, Urine Ketones Negative, Urine Occult Blood Negative, Urine Nitrite Negative, Urine Bilirubin Negative, Urine Urobilinogen Normal, Ur Leukocyte Esterase 25 H, Urine RBC 0 SEEN, Urine WBC 0 SEEN, Ur Squamous Epith Cells 0 SEEN, Urine Bacteria 0 SEEN, Urine Mucus 0 SEEN Rhythm Strip Rhythm Strip: A-fib Rate: 45 Ectopy: None Cardiology Labs/Tests 11/13/20 10:36: WBC 8.6, RBC 4.42 L, Hgb 14.1, Hct 42.4, MCV 95.9 H, MCH 31.9, MCHC 33.3, Plt Count 143 L, MPV 10.7, Immature Gran % (Auto) 0.100, Neut % (Auto) 56.8, Lymph % (Auto) 29.8, [place] % (Auto) 11.5 H, Eos % (Auto) 1.2, Baso % (Auto) 0.6, Absolute Neuts (auto) 4.9, Nucleated RBC % 0 11/13/20 10:36: Sodium 137, Potassium 4.3, Chloride 105, Carbon Dioxide 29.0, Anion Gap 3 L, BUN 16, Creatinine 1.23, Est GFR (MDRD) Af Amer 73, Est GFR (MDRD) Non-Af 61, BUN/Creatinine Ratio 13.0, Glucose 92, Calcium 9.1, Total Bilirubin 1.70 H 11/13/20 10:57: PT 15.3 H, INR 1.3 11/13/20 11:00: Urine Color Yellow, Urine Clarity Clear, Urine pH 7.0, Ur Specific [place] 1.005, Urine Protein Negative, Urine Glucose (UA) Normal, Urine Ketones Negative, Urine Occult Blood Negative, Urine Nitrite Negative, Urine Bilirubin Negative, Urine Urobilinogen Normal, Ur Leukocyte Esterase 25 H, Urine RBC 0 SEEN, Urine WBC 0 SEEN Rhythm: Atrial fibrillation EKG: Atrial fibrillation with slow ventricular response with low voltage QRS in the limb leads ECHO: As noted below Radiography Diagnostic Testing: Radiology Impression Head/Neck CTA 11/13/20 10:47 IMPRESSION: 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 No evidence of vessel stenosis or occlusion. No intracranial hemorrhage or mass-effect. Individualized dose optimization techniques were used for this CT. at 1145 Reported and signed by: Dereck Keen MD Electronically Signed: Dereck Keen MD at 11:44 EDT Tel , Service support , Brain MRI 11/13/20 12:02 IMPRESSION: 1. Right parieto-occipital AVM. 2. No acute ischemia or hemorrhage.. at 1441 Reported and signed by: Dereck Keen MD Electronically Signed: Dereck Keen MD at 14:40 EDT Tel , Service support , Echocardiogram 11/13/20 13:20 Interpretation Summary The study was technically difficult. Left ventricular systolic function is normal. The estimated ejection fraction is 55 %. The left atrium is mildly enlarged. The right atrium is mildly enlarged. Trivial mitral valve insufficiency. Mild tricuspid valve insufficiency. Right ventricular systolic pressure estimated to be 28 mmHg. Unable to assess diastolic dysfunction. Bubble contrast study negative for right to left interatrial shunt. Ordering Physician: Imer Frankel Referring Physician: Imer Cruz Performed By: Jill Dodd, OTIS, RVT
[2020-11-13] MEDS: Atorvastatin Calcium 20 MG Tablet PO (20:38)
[2020-11-13] MEDS: APIXABAN 5 MG TABLET PO (20:38)
[2020-11-14] VITALS (7 sets, daily range): BP systolic 128–149; BP diastolic 77–83; PULSE 44–52; RESP 16; TEMP 36.5; O2SAT 95–96
[2020-11-14] MEDS: 0.9% Normal Saline 1,000 ML 75 ML IV (03:01)
[2020-11-14] MEDS: Levothyroxine 125 MCG Tablet PO (05:31)
[2020-11-14 06:27] LABS: Absolute Lymphocyte Count 2.05 X10^3/uL (0.83-4.51); Absolute Neutrophil Count 3.7 X10^3/uL (2.0-7.7); Basophil# 0.05 X10^3/uL; Basophil% 0.8 % (0-1); Eosinophil# 0.18 X10^3/uL; Eosinophils% 2.7 % (0-5); Hematocrit 39.6 % (40-54); Hemoglobin 12.9 g/dL (13.0-16.5); Lymphocyte # 2.05 X10^3/ul (0.83-4.51); Lymphocyte % 31.1 % (19-41); Mean Corp Hgb Conc 32.6 g/dL (32-36); Mean Corpuscular Hgb 31.5 pg (27.0-32.0); Mean Corpuscular Volume 96.8 fL (80-94); Mean Platelet Vol. 10.4 fl (6.2-12.0); Monocyte# 0.61 X10^3/uL; Monocyte% 9.3 % (0-10); NRBC Flagged by Analyzer 0 % (0-5); Neutrophil # 3.69 X10^3/uL (2.7-7.7); Neutrophil % 55.9 % (47-70); Platelet Count 134 K/mm3 (150-450); RBC Distribution Width CV 13.6 % (11.6-14.6); RBC Distribution Width SD 48.4 fl (35.1-43.9); Red Blood Count 4.09 M/mm3 (4.6-6.2); White Blood Count 6.6 K/mm3 (4.4-11.0)
[2020-11-14 07:06] LABS: Anion Gap 5 (5-15); BUN 15 mg/dL (7-18); BUN/Creat Ratio 14.6 RATIO (10-20); Calcium,Total 8.4 mg/dL (8.5-10.1); Chloride 109 mmol/L (98-107); Cholesterol 109 mg/dL (200); Creatinine, Serum 1.03 mg/dL (0.70-1.30); EST Glomerular Filtration Rate 74 mL/min (>60); Est Glom Filt Rate - Afr Amer 90 mL/min (>60); Estimated Creatinine Clearance 65.92 ml/min; Glucose 91 mg/dL (74-106); High Density Lipoprotein 50 mg/dL; Magnesium 1.7 mg/dL (1.6-2.6); Potassium 4.1 mmol/L (3.5-5.1); Sodium Level 141 mmol/L (136-145); Thyroid Stim Hormone (TSH) 1.18 uIU/mL (0.358-3.74); Triglycerides 51 mg/dL; Very Low Density Lipoprotein 10 mg/dL (5-40)
[2020-11-14] MEDS: Lisinopril 2.5 MG Tablet PO (09:28)
[2020-11-14] MEDS: APIXABAN 5 MG TABLET PO (09:28)
[2020-11-14] MEDS: Aspirin 81 MG TAB.CHEW PO (09:29)
--- NOTE | 2020-11-14 11:46 | TELEMED_ITS ---
[facility] Tele[facility] has confirmed receipt of a request for visit. This document confirms receipt of the order initiating the consult. To find the results of the consultation, please view the patient's reports for the scanned Telemed Consult.
--- NOTE | 2020-11-14 14:55 | CASEMGMT ---
CORAL RIVERA in to discuss ORELLANA form with patient. RN MIGUEL explained ORELLANA form to patient, patient voiced understanding. Patient signed ORELLANA form and filed in chart. RN MIGUEL provided patient with copy of signed ORELLANA form. Patient had no further questions or concerns.
--- NOTE | 2020-11-14 17:10 | PCM.DC ---
Discharge Instructions Diet Discharge Diet: 2000 mg Sodium Diet Activity Discharge Activity: May Not Drive Dressing / Incision Call your doctor if you observe: Fever of 101 or Higher, Coldness, Increased Pain, Numbness or Tingling, Change in Color, Inability to urinate, Inability to have a bowel movement, Shortness of breath, Dizziness, Fainting spells, Swelling in the ankles, Chest pain, Prolonged hiccupping, Increased palpitations (irregular heartbeat), Calf discomfort and Uncontrolled pain Follow Up Care Test Results: Test results from this visit will be discussed in further detail at your follow-up appointment, if applicable. Discharge Plan Admission Admit Date/Time: 11/13/20 12:02 Primary Reason for Your Visit: Global amnesia. 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 Discharge Orders/Prescriptions Prescriptions: Continued atorvastatin 20 mg tablet 20 mg PO QHS RF: 0 tamsulosin 0.4 mg capsule 0.4 mg PO DAILY RF: 0 levothyroxine 125 mcg tablet 125 mcg PO DAILY RF: 0 nitroglycerin 0.4 mg tablet, sublingual 0.4 mg sublingual PRN PRN (Reason: Chest Pain) RF: 0 lisinopril 2.5 mg tablet 2.5 mg PO DAILY RF: 0 Eliquis 5 mg Tablet 5 mg PO BID RF: 0 aspirin 81 mg Capsule 81 mg PO DAILY RF: 0 glucosamine HCl 1,500 mg Tablet 1,200 mg PO BID RF: 0 melatonin 5 mg Tablet 5 mg PO PRN PRN (Reason: Sleep) RF: 0 Referrals / Follow Up: Imer Cruz MD [Primary Care Provider] - Maxim Ram MD [STAFF PHYSICIAN] - Within 2 Weeks (Small AV malformation in right parieto-occipital region) Disposition Disposition (needs filled in before D/C Order can be placed): Home, Self Care
--- NOTE | 2020-11-14 17:15 | DS.PCM_ITS ---
Providers Date of Admission: 11/13/20 Primary Care Physician: Dr. Imer Cruz MD Consultations 11/13/20 13:20 Consult: Cardiology Routine Consulting Provider: Shamar Mauor Reason for Consult: bradycardia EMERGENT Consult: No MD Notified: Yes Date Notified: 11/13/20 Time Notified: 12:17 Method of Notification: Text Method of Consult:: In-Person Reason For Visit: AMS Diagnosis Discharge Diagnosis (1) CAD (coronary artery disease): Status: Acute Code(s): I25.10 - Atherosclerotic heart disease of [place] coronary artery without angina pectoris Qualifiers: Associated angina: without angina Coronary Disease-Associated Artery/Lesion type: [place] artery [place] vs. transplanted heart: [place] heart Qualified Code(s): I25.10 - Atherosclerotic heart disease of [place] coronary artery without angina pectoris (2) S/P PTCA (percutaneous transluminal coronary angioplasty): Status: Acute Code(s): Z98.61 - Coronary angioplasty status (3) Atrial fibrillation: Status: Acute Code(s): I48.91 - Unspecified atrial fibrillation Qualifiers: Atrial fibrillation type: permanent Qualified Code(s): I48.21 - Permanent atrial fibrillation (4) HLD (hyperlipidemia): Status: Acute Code(s): E78.5 - Hyperlipidemia, unspecified Qualifiers: Hyperlipidemia type: unspecified Qualified Code(s): E78.5 - Hyperlipidemia, unspecified (5) Benign essential HTN: Status: Acute Code(s): I10 - Essential (primary) hypertension (6) Acute alteration in mental status: Status: Acute Code(s): R41.82 - Altered mental status, unspecified Medications at Discharge Home Medications Eliquis 5 mg PO BID 11/13/20 aspirin 81 mg PO DAILY 11/13/20 atorvastatin 20 mg PO QHS 11/13/20 glucosamine HCl 1,200 mg PO BID 11/13/20 levothyroxine 125 mcg PO DAILY 11/13/20 lisinopril 2.5 mg PO DAILY 11/13/20 melatonin 5 mg PO PRN PRN 11/13/20 nitroglycerin 0.4 mg SUBLINGUAL PRN PRN 11/13/20 tamsulosin 0.4 mg PO DAILY 11/13/20 Hospital Course Summary of Care Provided Hospital Course: This 68-year-old patient multiple comorbidities including chronic A. fib was admitted with visual perceptual disorder, could not rectify his or [address] of his home. EKG shows bradycardia with heart rate 35 to 45/min. Patient has history of A. fib with bradycardia and not on rate control medications. And also had headache on past Wednesday, 2 days ago. No fall or head trauma. Covid test was negative. Chest x-ray negative. Patient was admitted in PCU with diagnosis of confusion/complex migraine. (1) likely complex migraine, resolved or transient global amnesia: Patient was admitted in PCU. 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 No acute infarct or hemorrhage. Neurologist impression was possible complex migraine but has resolved. He recommended outpatient neurology, ambulatory EEG if symptoms recur, pain control for as needed headache and risk of regulation a nd hemorrhage in view of AVM. This was discussed with the patient and his . Negative for outpatient neurology follow-up with Dr. Ram reviewed. 2. Chronic A. fib with severe bradycardia ?Secondary to A. fib with slow ventricular response. Patient had STEMI in 2010 and had PCI done in [facility]. Medical records acute from [facility]. Complex 95% mid lesion in LAD for which was stented. Other's lesions were complex calcified 95% proximal LAD, tubular eccentric 75% mid circumflex, diffuse 35% proximal RCA, tubular 80% proximal first diagonal and a discrete 100% ostial lesion in second diagonal. Patient follows Dr. Wong and harness mender and he felt that pacemaker was not indicated. Patient was seen and evaluated by merchandising lead. Advised no beta-dhiraj or CCB or other rate lowering medication. Advised to follow-up with his merchandising lead electroph ysiologist. 3. Hypothyroidism - Patient is on levothyroxine home dose continued 4. BPH ?Patient is on tamsulosin 5. A. fib with slow ventricular response ?Patient is on systemic anticoagulation with Eliquis did continue 6. DVT prophylaxis on Eliquis no need for additional orders Discharge medication reconciliation done. Discharge follow-up instructions completed. Discharge process discussed with the patient and all questions were answered to patient's satisfaction. Total time spent, exact 35 minutes on discharge meds reconciliation, examination, coordination of care with nurses and ancillary staff, review of imaging and blood test and discussion with the patient on follow-up instructions Physical Exam Narrative Seen and examined. 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 fib with slow ventricular response, heart rate about 45/min. Visual symptoms have resolved. Patient can lead to clock timing. No headache. Physical exam General: Alert, Oriented x3, Cooperative HEENT: Atraumatic, PERRLA, EOMI, Normocephalic Oral: No Gingival or Mucosal Lesions/ Ulcerations Neck: Supple, No JVD, Negative Carotid Bruits Lungs: Air entry diminished in bilateral lung bases. No crepitation/rhonchi Cardiovascular: Chronic A. fib normal S1, Normal S2, No murmurs Abdomen: Bowel Sounds Present, Soft, Non Tender, Non-Distended : No renal angle tenderness. No suprapubic tenderness. Extremities: No edema, Capillary Refill Less than 3 Seconds Skin: No rashes, No breakdown Musculoskeletal: No Tenderness to Palpation of Joints or Extremities Neurological: No focal neurological symptoms. Cranial nerves II-XII grossly intact, DTR 2+/4 and Symmetrical, Neuro grossly intact Psych/Mental Status: Normal Affect, Appropriate. Weight / BMI Weight Weight: 197 lb 15.602 oz Body Mass Index (BMI) 26.8 ABG / Lab / Microbiology Data Result Diagrams: 11/14/20 06:10 11/14/20 06:10 Laboratory: Laboratory Results - last 24 hr 11/14/20 06:10: WBC 6.6, RBC 4.09 L, Hgb 12.9 L, Hct 39.6 L, MCV 96.8 H, MCH 31.5, MCHC 32.6, RDW Std Deviation 48.4 H, RDW Coeff of Stefano 13.6, Plt Count 134 L, MPV 10.4, Immature Gran % (Auto) 0.200, Neut % (Auto) 55.9, Lymph % (Auto) 31.1, Summers % (Auto) 9.3, Eos % (Auto) 2.7, Baso % (Auto) 0.8, Absolute Neuts (auto) 3.7, Absolute Lymphs (auto) 2.05, Nucleated RBC % 0 11/14/20 06:10: Sodium 141, Potassium 4.1, Chloride 109 H, Carbon Dioxide 27.0, Anion Gap 5, BUN 15, Creatinine 1.03, Estim Creat Clear Calc 65.92, Est GFR (MD RD) Af Amer 90, Est GFR (MDRD) Non-Af 74, BUN/Creatinine Ratio 14.6, Glucose 91, Calcium 8.4 L, Magnesium 1.7, Triglycerides 51, Cholesterol 109, LDL Cholesterol 49, VLDL Cholesterol 10, HDL Cholesterol 50, TSH 1.18 D/C Instructions Discharge Diet: 2000 mg Sodium Diet Call your doctor if you observe: Fever of 101 or Higher, Coldness, Increased Pain, Numbness or Tingling, Change in Color, Inability to urinate, Inability to have a bowel movement, Shortness of breath, Dizziness, Fainting spells, Swelling in the ankles, Chest pain, Prolonged hiccupping, Increased palpitations (irregular heartbeat), Calf discomfort and Uncontrolled pain Meaningful Use Info Meaningful Use Diagnoses (Choose all that apply): None applicable Discharge Plan Admission Admit Date/Time: 11/13/20 12:02 Primary Reason for Your Visit: Global amnesia. Attending Provider: Noe Young Primary Care Provider: Imer Cruz Consulting Providers: Shamar Mauro Instructions Additional Instructions / Restrictions: Follow-up patient's own merchandising lead Dr. Wong and harness mender. Discharge Orders/Prescriptions Prescriptions: Continued atorvastatin 20 mg tablet 20 mg PO QHS RF: 0 tamsulosin 0.4 mg capsule 0.4 mg PO DAILY RF: 0 levothyroxine 125 mcg tablet 125 mcg PO DAILY RF: 0 nitroglycerin 0.4 mg tablet, sublingual 0.4 mg sublingual PRN PRN (Reason: Chest Pain) RF: 0 lisinopril 2.5 mg tablet 2.5 mg PO DAILY RF: 0 Eliquis 5 mg Tablet 5 mg PO BID RF: 0 aspirin 81 mg Capsule 81 mg PO DAILY RF: 0 glucosamine HCl 1,500 mg Tablet 1,200 mg PO BID RF: 0 melatonin 5 mg Tablet 5 mg PO PRN PRN (Reason: Sleep) RF: 0 Referrals / Follow Up: Imer Cruz MD [Primary Care Provider] - Maxim Ram MD [STAFF PHYSICIAN] - Within 2 Weeks (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
== END 2020-11-14 17:42 | disposition home or self-care (01) ==
LOC: ED 12:02 → PCU 12:19
PROVIDERS: Admitting Provider Internal Medicine; Emergency Provider Emergency Medicine; PCP Family Medicine; Visit Provider Internal Medicine
DX: G43.109 Migraine with aura, not intractable, without status migrainosus (principal); I48.21 Permanent atrial fibrillation; I10 Essential (primary) hypertension; E03.9 Hypothyroidism, unspecified; I25.10 Atherosclerotic heart disease of native coronary artery without angina pectoris; N40.0 Benign prostatic hyperplasia without lower urinary tract symptoms; Z79.899 Other long term (current) drug therapy; Z79.01 Long term (current) use of anticoagulants; Z87.891 Personal history of nicotine dependence; E78.5 Hyperlipidemia, unspecified; I25.2 Old myocardial infarction
CPT/HCPCS: 36415; 70496; 70498; 70551; 80048; 80053; 80061; 81001; 82962; 83735; 84443; 84484; 85025; 85610; 93005; 93306; 94762; 96360; 96361; 97161; 97166; 99218; 99285; J7030; Q9967; A4216; G0378; J3490

== ENCOUNTER → 2021-01-17 12:29 | Outpatient (CLI) | payer MEDICARE, SELFPAY | PROVIDERS: PCP Family Medicine; Referring Provider Psychiatry & Neurology Neurology; Visit Provider Psychiatry & Neurology Neurology | DX: R41.0 Disorientation, unspecified (principal) | CPT/HCPCS: 95819 ==

== ENCOUNTER 2021-04-15 11:14 | Emergency (ER) | payer MEDICARE, SELFPAY ==
[2021-04-15 11:17] VITALS: BP 132/66; PULSE 52; RESP 14; TEMP 36; O2SAT 100; BMI 27.9
--- NOTE | 2021-04-15 11:37 | EDS_ITS ---
HPI History of Present Illness Chief Complaint: Upper Extremity Injury Informant: patient Occured/Mechanism Mechanism/Context: Yes fall Onset/Context/Timing Onset: Days (2) Context: Sudden Onset Timing: Continuous Quality of Pain: Aching Location: Right shoulder Current Severity: Moderate Maximum Severity: Severe Worsened by: Movement Relieved by: Remaining still Narrative Narrative: Patient slipped and fell 2 days ago, landed on his right elbow but has no pain at the elbow, all of the pain is in the shoulder. [id number]. Trouble moving the right shoulder so he presents for evaluation. Denies any numbness or weakness. Denies any other injury or hitting his head. He is on Eliquis for chronic A. fib. [facility] Medical History Atrial fibrillation Atrial fibrillation Benign essential HTN CAD (coronary artery disease) Carpal tunnel syndrome Coronary artery disease Former smoker Heart failure High cholesterol HLD (hyperlipidemia) Hypertension Hypothyroidism Migraines Myocardial infarct Prostate disorder Thyroid disorder Home Medications Eliquis 5 mg PO BID 11/13/20 [History Last Taken Unknown] aspirin 81 mg PO DAILY 11/13/20 [History Last Taken Unknown] atorvastatin 20 mg PO QHS 11/13/20 [History Last Taken Unknown] levothyroxine 125 mcg PO DAILY 11/13/20 [History Last Taken Unknown] lisinopril 2.5 mg PO DAILY 11/13/20 [History Last Taken Unknown] nitroglycerin 0.4 mg SUBLINGUAL PRN PRN 11/13/20 [History Last Taken Unknown] tamsulosin 0.4 mg PO DAILY 11/13/20 [History Last Taken Unknown] inulin 2 gram chewable tablet 2 g PO DAILY tab 12/23/20 [History Last Taken Unknown] Allergy/AdvReac Type Severity Reaction Status Date / Time morphine Allergy Unknown Unknown Verified 02/24/21 13:35 Family History Father No problems noted. Mother CVA (cerebral vascular accident) Surgical History History of carpal tunnel repair History of herniorrhaphy Hx of heart artery stent S/P PTCA (percutaneous transluminal coronary angioplasty) Social History Smoking Status: Former smoker pack-years: 20 Tobacco: How many years used: 20 how long ago did patient quit smoking: Quit about 35 years ago second hand exposure: No alcohol intake: never substance use type: does not use ROS ROS ED Constitutional Constitutional ED: Denies chills or fever(s) Musculoskeletal Musculoskeletal: Reports extremity pain; Denies neck pain Integumentary Denies Abrasions, rash or wounds Neurologic Neurologic: Denies paresthesias or weakness EXAM Physical Exam Const Vital Signs: 04/15/21 11:17 Temperature 96.8 F L Temperature Source Temporal Pulse Rate 52 L Respiratory Rate 14 Blood Pressure 132/66 H Blood Pressure Mean 88 Pulse Ox 100 Oxygen Delivery Method Room Air Positive well nourished and well developed General Appearance ED: well developed and NAD Neck full ROM and supple Back/Spine normal ROM and normal to inspection Extremity normal to inspection Extremity Narrative: Limited range of motion right shoulder. He is able to abduct about 15 or 20 degrees. No deformity. Tender at the lateral aspect of the clavicle but not the acromioclavicular joint, and also tender throughout the proximal humerus. He has lidocaine patches on these areas. Full range of motion throughout all other joints including the elbow, without any other bony tenderness of the right upper extremity. No sternoclavicular tenderness. Neuro oriented x3, no focal motor deficits and no sensory deficits noted Sensorium / Orientation: alert Psych mental status grossly normal and thought process normal Skin no wounds Rashes: no rashes MDM MDM MDM Narrative Medical decision making narrative: X-rays of the right shoulder were obtained including an axillary view, and on my interpretation 5 views and that of the radiologist, there is no obvious fracture or dislocation. Degenerative changes are noted. I discussed with Dr. Zaragoza with orthopedics, he advises close outpatient follow-up with a sling, I will offer the patient analgesics as well, and advise outpatient follow-up. Internal soft tissue derangement is not able to be ruled out at this time clinically, but he does not need an emergent MRI. Discharge Plan Triage Chief Complaint: Upper Extremity Injury ED Provider: Arcenio Hector Dx/Rx/DC Orders Clinical Impression: Injury of right shoulder, Fall due to slipping on ice or snow Instructions: ED Sling Prescriptions: No Action Fiber Gummies 2 gram tablet,chewable 2 g PO DAILY RF: 0 atorvastatin 20 mg tablet 20 mg PO QHS RF: 0 tamsulosin 0.4 mg capsule 0.4 mg PO DAILY RF: 0 levothyroxine 125 mcg tablet 125 mcg PO DAILY RF: 0 nitroglycerin 0.4 mg tablet, sublingual 0.4 mg sublingual PRN PRN (Reason: Chest Pain) RF: 0 lisinopril 2.5 mg tablet 2.5 mg PO DAILY RF: 0 Eliquis 5 mg Tablet 5 mg PO BID RF: 0 aspirin 81 mg Capsule 81 mg PO DAILY RF: 0 Primary Care Provider: Imer Cruz Referrals: Imer Cruz MD [Primary Care Provider] - Manuel Zaragoza MD [STAFF PHYSICIAN] - As soon as possible (Call for appointment) Disposition Disposition: Home, Self Care Discharge Date/Time: 04/15/21 12:58
--- NOTE | 2021-04-15 11:45 | RAD_ITS ---
STUDY: X-RAY - RIGHT SHOULDER REASON FOR EXAM: Male, 76 years old. Shoulder pain following a fall. TECHNIQUE: 5 view(s) of the shoulder. COMPARISON: None. FINDINGS: Normal glenohumeral articulation. There is degenerative arthrosis of the acromioclavicular joint without inferior osseous spur formation. Normal acromion. Normal humeral head and visualized proximal humerus. The soft tissue structures are unremarkable. Normal visualized pulmonary apex. RAD/Shoulder min 2 Views IMPRESSION: Degenerative changes of the acromioclavicular joint. No evidence of fracture or dislocation. Electronically Signed: Jacinto Diaz MD at 12:03 EST ,
== END 2021-04-15 12:58 | disposition home or self-care (01) ==
PROVIDERS: Emergency Provider Emergency Medicine; PCP Family Medicine; Visit Provider Emergency Medicine
DX: S49.91XA Unspecified injury of right shoulder and upper arm, initial encounter (principal); I11.0 Hypertensive heart disease with heart failure; I50.9 Heart failure, unspecified; I48.20 Chronic atrial fibrillation, unspecified; Z87.891 Personal history of nicotine dependence; E78.5 Hyperlipidemia, unspecified; I25.10 Atherosclerotic heart disease of native coronary artery without angina pectoris; E78.00 Pure hypercholesterolemia, unspecified; W00.0XXA Fall on same level due to ice and snow, initial encounter; Y93.9 Activity, unspecified; Y92.9 Unspecified place or not applicable; Z79.01 Long term (current) use of anticoagulants; Z79.82 Long term (current) use of aspirin; Z79.899 Other long term (current) drug therapy; E03.9 Hypothyroidism, unspecified; I25.2 Old myocardial infarction
CPT/HCPCS: 73030; 99283

== ENCOUNTER 2021-04-28 10:34 | Outpatient (CLI) | payer MEDICARE, SELFPAY ==
--- NOTE | 2021-04-28 10:54 | MRI_ITS ---
STUDY: MRI RIGHT SHOULDER REASON FOR EXAM: Right shoulder pain, right shoulder injury 2 weeks ago. TECHNIQUE: Standardized fat and water weighted pulse sequences were obtained in all 3 orthogonal planes. COMPARISON: Radiographs 04/15/2021. FINDINGS: There is a full-thickness tear of the supraspinatus tendon retracted maximally approximately 2.9 cm (T2 coronal images 11-17). There is infraspinatus tendinosis (T2 sagittal images 5-10) without discrete tendon tear. There is mild subscapularis tendinosis (T2 axial image 16) without discrete tendon tear. Normal teres minor tendon. There is mild edema in the supraspinatus muscle. There is mild edema in the infraspinatus muscle. Normal subscapularis muscle. Normal teres minor muscle. There is a glenohumeral joint effusion. There is superior migration secondary to the retracted rotator cuff tear. There is a small bone contusion of the posterior lateral humeral head (T2 coronal image 8) and a small enchondroma in the humeral head (T2 coronal image 10) measuring 0.8 cm in mediolateral dimension. There is a tear with nonvisualization of the intracapsular long biceps tendon. Normal labrum. Normal capsulo- ligamentous complex. There is acromioclavicular arthrosis without substantial undersurface osteophytes (T2 sagittal images 15, 16). There is a Type II morphology (curved), with a neutral orientation. There is subacromial-subdeltoid bursal fluid. There is mild thickening of the coracoacromial ligament (T2 sagittal image 12). Normal deltoid muscle. Normal trapezius muscle. MRI/Upper Ext Joint Only(Routine) IMPRESSION: Full-thickness tear of the supraspinatus tendon. Infraspinatus and subscapularis tendinosis. Small bone contusion of the humeral head. Tear of the long biceps tendon. Acromioclavicular arthrosis. Mild thickening of the coracoacromial ligament. Glenohumeral joint fluid communicating with the subacromial-subdeltoid bursa. Small enchondroma in the humeral head. Electronically Signed: Efren Metcalf MD at 13:03 EST ,
== END 2021-04-28 23:59 | disposition home or self-care (01) ==
PROVIDERS: PCP Family Medicine; Referring Provider Orthopaedic Surgery; Visit Provider Orthopaedic Surgery
DX: S43.491A Other sprain of right shoulder joint, initial encounter (principal)
CPT/HCPCS: 73221

== ENCOUNTER 2021-06-08 05:21 | Emergency (ER) | payer MEDICARE, SELFPAY ==
[2021-06-08 05:21] VITALS: BP 177/92; PULSE 65; RESP 20; TEMP 36.6; O2SAT 97; BMI 28.2
--- NOTE | 2021-06-08 05:36 | EDS_ITS ---
HPI History of Present Illness Chief Complaint: Complaint Detail of Chief Complaint: Unable to urinate. Informant: patient and spouse/S.O. Pain Onset: Today and Yesterday Context: Gradual Onset Timing: Continuous Current Severity: Mild Maximum Severity: Mild Appearance Lesion(s): No Genital Edema: No Related History Prostate Cancer: No Narrative Narrative: 76-year-old male history of A. fib, CAD, hypertension, BPH. He is on Eliquis. He is on Flomax for his enlarged prostate. He had a colonoscopy on Wednesday. He had trouble urinating on Wednesday and now is unable. Today was only having minor dribbling urine. Prior to the colonoscopy he was not having any dysuria. No gross hematuria. He has had difficulty urinating in past he is never needed a Luo catheter. He denies any recent illness. No recent fever. Prior similar symptoms: Yes Recent Illness/Hospitalization: No PFSH PFSH Medical History Atrial fibrillation Atrial fibrillation Benign essential HTN CAD (coronary artery disease) Carpal tunnel syndrome Coronary artery disease Former smoker Heart failure High cholesterol HLD (hyperlipidemia) Hypertension Hypothyroidism Migraines Myocardial infarct Prostate disorder Thyroid disorder Home Medications Eliquis 5 mg PO BID 11/13/20 [History Last Taken Unknown] aspirin 81 mg PO DAILY 11/13/20 [History Last Taken Unknown] atorvastatin 20 mg PO QHS 11/13/20 [History Last Taken Unknown] levothyroxine 125 mcg PO DAILY 11/13/20 [History Last Taken Unknown] lisinopril 2.5 mg PO DAILY 11/13/20 [History Last Taken Unknown] nitroglycerin 0.4 mg SUBLINGUAL PRN PRN 11/13/20 [History Last Taken Unknown] tamsulosin 0.4 mg PO DAILY 11/13/20 [History Last Taken Unknown] inulin 2 gram chewable tablet 2 g PO DAILY tab 12/23/20 [History Last Taken Unknown] Allergy/AdvReac Type Severity Reaction Status Date / Time morphine Allergy Unknown Unknown Verified 02/24/21 13:35 Family History Father No problems noted. Mother CVA (cerebral vascular accident) Surgical History History of carpal tunnel repair History of herniorrhaphy Hx of heart artery stent S/P PTCA (percutaneous transluminal coronary angioplasty) Social History Smoking Status: Former smoker pack-years: 20 Tobacco: How many years used: 20 how long ago did patient quit smoking: Quit about 35 years ago second hand exposure: No alcohol intake: never substance use type: does not use ROS ROS ED ROS Narrative Unable to urinate. Review of Systems ROS Unobtainable: Denies due to encephalopathy Constitutional Constitutional ED: Denies fever(s) Eyes Eyes: Denies change in vision ENT ENT ED: Denies ear pain Cardiovascular Cardiovascular: Denies chest pain Respiratory/Chest Respiratory/Chest: Denies dyspnea Gastrointestinal Gastrointestinal: Reports abdominal pain; Denies constipation, diarrhea, melena, nausea or vomiting Genitourinary Genitourinary ED: Denies dysuria or hematuria Musculoskeletal Musculoskeletal: Denies myalgias Integumentary Denies rash Neurologic Neurologic: Denies headache(s) Psychiatric Psychiatric: Denies depression Endocrine Endocrinology: Denies polyuria Hematologic/Lymphatic Hematologic/Lymphatic: Denies easy bruising Allergic/Immunologic Allergic/Immunologic ED: Denies urticaria EXAM Physical Exam Narrative Exam Narrative: 76-year-old male. Vital signs stable afebrile. H EENT exam unremarkable. Moist extremities. Lungs clear to auscultation. Heart regular rate and rhythm no murmur rate about 65. Abdomen soft. Tender suprapubically only. Distended bladder. Bladder scan per nurse was around 870 cc. Normal bowel sounds. Moving all 4 extremities. Nontender no edema. Normal motor strength. Neurologically awake and alert. Const Vital Signs: 06/08/21 05:21 Temperature 97.8 F Temperature Source Temporal Pulse Rate 65 Respiratory Rate 20 H Blood Pressure 177/92 H Blood Pressure Mean 120 Pulse Ox 97 Oxygen Delivery Method Room Air Positive well nourished and well developed; Negative for obese, cachectic, contractures or unkempt General Appearance ED: well developed and NAD; Negative for unkempt, cachectic, contractures or pallor Nutritional Appearance: Negative for cachectic or obese HEENT Reports moist mucous membranes normocephalic and atraumatic Eyes PERRL and EOMs intact bilaterally General Eye ED: Negative for pale conjunctiva or scleral icterus Neck no lymphadenopathy, supple and no JVD General: Negative for tenderness Resp normal respiratory effort and clear to auscultation bilaterally Auscultation: Negative for rales, rhonchi or wheezes Cardio regular rate, regular rhythm, S1 normal heart sound, S2 normal heart sound and no murmurs GI non-distended and no masses; Negative for non-tender Inspection: Negative for abdominal distention Auscultation: normoactive bowel sounds; Negative for hyperactive bowel sounds or hypoactive bowel sounds Palpation: soft; Negative for hepatomegaly or splenomegaly Rectal Exam: tenderness no CVA tenderness Penis: normal penis and circumcised Meatus: meatus normal; Negative for meatal discharge or blood at meatus Back/Spine no CVA tenderness General Back: Negative for CVA tenderness Cervical Spine: Negative for cervical spine tenderness Extremity normal to inspection General Extremety ED: Negative for edema or tenderness General Extremity: Negative for edema Neuro oriented x3, moves all extremities and no focal motor deficits Sensorium / Orientation: alert, oriented to person, oriented to place and oriented to time; Negative for confused, lethargic or stuporous Psych mental status grossly normal Appearance: Negative for unkempt Attitude: No agitated Mood & Affect: Negative for depressed or tearful Skin General Skin Exam: Negative for jaundice or pallor Lesions: no lesions Rashes: no rashes MDM MDM MDM Narrative Medical decision making narrative: 76-year-old male history of benign prostate hypertrophy on . Had a colonoscopy on Wednesday. Difficulty urinating yesterday and unable to today. Bladder scan showed around 870 cc of urine. Nurses placed a 16 [place] Luo catheter with clear yellow to orange urine. No gross blood. No clots. Urinalysis will be sent. Repeat exam patient is doing well at 6:50 AM. He will be discharged home with a Luo leg bag. Follow-up with Dr. Nakul Mcclure of urology. Lab Data Attestation: I reviewed the patient's lab results. Lab results narrative: Urinalysis shows positive nitrates. No red cells. No white cells. Only rare bacteria. Patient was not having any symptoms this will not be treated. Labs: Laboratory Results - last 24 hr 06/08/21 05:43 Urine Color [place] Urine Clarity Clear Urine pH 5.0 Ur Specific [place] 1.020 Urine Protein 30 H Urine Glucose (UA) Normal Urine Ketones Negative Urine Occult Blood 10 H Urine Nitrite Positive H Urine Bilirubin 3 H Urine Urobilinogen 4 H Ur Leukocyte Esterase 25 H Urine RBC 0-5 SEEN Urine WBC 0 SEEN Ur Squamous Epith Cells 0 SEEN Urine Bacteria RARE Urine Mucus 0 SEEN Discharge Plan Triage Chief Complaint: Complaint ED Provider: Steven Laguna Dx/Rx/DC Orders Clinical Impression: Acute urinary retention, History of BPH, History of atrial fibrillation, Chronic anticoagulation Instructions: ED Urinary Retention, Male Prescriptions: No Action Fiber Gummies 2 gram tablet,chewable 2 g PO DAILY RF: 0 atorvastatin 20 mg tablet 20 mg PO QHS RF: 0 tamsulosin 0.4 mg capsule 0.4 mg PO DAILY RF: 0 levothyroxine 125 mcg tablet 125 mcg PO DAILY RF: 0 nitroglycerin 0.4 mg tablet, sublingual 0.4 mg sublingual PRN PRN (Reason: Chest Pain) RF: 0 lisinopril 2.5 mg tablet 2.5 mg PO DAILY RF: 0 Eliquis 5 mg Tablet 5 mg PO BID RF: 0 aspirin 81 mg Capsule 81 mg PO DAILY RF: 0 Primary Care Provider: Imer Cruz Referrals: Imer Cruz MD [Primary Care Provider] - 3-5 Days Alvino Mcclure MD [STAFF PHYSICIAN] - As soon as possible Activity Restrictions/Additional Instructions: Follow-up with your primary care physician or Dr. Nakul Mcclure to have your Luo catheter removed. Continue on your Flomax. Return if the Luo catheter stops working. Disposition Disposition: Home, Self Care
[2021-06-08] MEDS: Lidocaine Jelly 2% 20 ML Syringe (URO-JET) 1 APPLIC TOPICAL (05:43)
[2021-06-08 05:48] LABS: Mucous, Urine 0 SEEN /hpf (<or=2+); Squamous Epithelial Cells - UA 0 SEEN /hpf (0-5); White Blood Cells 0 SEEN /hpf (0-5)
[2021-06-08 05:49] LABS: Color, Urine Amber (Yellow); Glucose, Dipstick Normal (Normal); Ketone-Dipstick Negative (Negative); Leukocyte Esterase-Dipstick 25 /ul (Negative); Nitrite-Dipstick Positive (Negative); Occult Blood-Urine 10 /ul (Negative); Protein-Dipstick 30 mg/dl (Negative); Urine Clarity Clear (Clear); Urine Urobilinogen 4 mg/dl (Normal)
[2021-06-08 06:47] LABS: Bacteria RARE /hpf (None Seen); Red Blood Cells-Urine 0-5 SEEN /hpf (0-5); Urine Bilirubin Dipstick 3 mg/dL (Negative)
== END 2021-06-08 07:04 | disposition home or self-care (01) ==
LOC: ED 05:47
PROVIDERS: Emergency Provider Emergency Medicine; PCP Family Medicine; Visit Provider Emergency Medicine
DX: R33.9 Retention of urine, unspecified (principal); I25.10 Atherosclerotic heart disease of native coronary artery without angina pectoris; I25.2 Old myocardial infarction; Z87.891 Personal history of nicotine dependence; Z79.01 Long term (current) use of anticoagulants
CPT/HCPCS: 51702; 81001; 99283

== ENCOUNTER 2021-06-12 15:05 | Emergency (ER) | payer MEDICARE, SELFPAY ==
[2021-06-12 15:06] VITALS: BP 110/85; PULSE 50; RESP 16; TEMP 36.2; O2SAT 98; BMI 28.0
--- NOTE | 2021-06-12 15:13 | CT_ITS ---
STUDY: CTA HEAD AND NECK WITH CONTRAST; CT BRAIN WITHOUT CONTRAST REASON FOR EXAM: Male, 76 years old. blurred vision T headache x several days, hx AVM, hypertension, afib on Eliquis. RADIATION DOSAGE (If Supplied By Facility): CTDIvol = ( 36.52 ) mGy, DLP = ( 822.37 ) mGycm TECHNIQUE: Noncontrast head CT initially performed. CT angiography was performed with a multi-detector CT scanner. Data acquisition was obtained from the skull base through the vertex following intravenous administration of IV 100mL [id number]-[id number]. MIP images were reconstructed from the axial data set. Post-processing of the angiographic images was performed, with multiplanar reformation and 3D reconstruction. Degree of stenosis (when present) measured utilizing NASCET criteria. Individualized dose optimization techniques were used for this CT. COMPARISON: MRI and CTA 11/13/2020 FINDINGS: Normal bilateral petrous carotid arteries. Normal right cavernous carotid artery with a normal supraclinoid bifurcation. Normal left cavernous carotid artery with a normal supraclinoid bifurcation. Normal right A1 segments of the anterior cerebral artery. Normal left A1 segments of the anterior cerebral artery. Normal intact anterior communicating artery (ACOM). Normal bilateral A2 segments of the anterior cerebral arteries. Hypertrophy right M1 and M2 segments of the middle cerebral arteries, with a normal M1 bifurcation (no thrombus). Distal branches supply a right parietal-occipital AVM (described below). Normal left M1 and M2 segments of the middle cerebral arteries, with a normal M1 bifurcation. Normal right posterior communicating artery (PCOM). Normal left posterior communicating artery (PCOM). Normal bilateral vertebral arteries. Normal basilar artery with a normal basilar bifurcation. The visualized bilateral superior cerebellar (SCA) arteries are normal. Normal left P1, P2 and visualized P3 segments of the posterior cerebral arteries. Right posterior cerebral artery remains hypertrophic, extending to/feeding 2.5 x 3.3 cm vascular malformation (with calcifications) in the region of the parietal-occipital lobes. There is venous drainage seen into the posterior sagittal sinus. There is no demonstrated aneurysm of the [place]. There is no demonstrated abnormality of the visualized brain. AORTIC ARCH: Normal visualized aortic arch. Normal origins of the brachiocephalic, left common carotid, and left subclavian arteries. RIGHT CAROTID ARTERIES: Normal right common carotid artery (CCA). There is mild atherosclerotic plaque formation with minimal narrowing of the right carotid bulb. Normal origin of the right internal carotid (ICA) artery without a hemodynamically significant stenosis. Normal visualized cervical portion of the right internal carotid artery. Normal origin of the right external carotid artery (ECA). LEFT CAROTID ARTERIES: Normal left common carotid artery (CCA). Normal left common carotid bulb. There is mild atherosclerotic plaque formation of the origin of the left internal carotid artery with 30% stenosis. Normal visualized cervical portion of the left internal carotid artery. Normal origin of the left external carotid artery (ECA). VERTEBRAL ARTERIES: Normal bilateral vertebral arteries. CT BRAIN: Normal soft tissue structures. Normal calvarium. Normal size ventricles and extra-axial spaces for the patient''s age. There are areas of decreased attenuation within the white matter tracts of the supratentorial brain, consistent with microvascular disease changes. Normal basal ganglia and thalami. Normal brainstem. Normal cerebellum. There is no intracranial hemorrhage. There are no findings of an acute ischemic infarction. Normal visualized paranasal sinuses. Degenerative changes of the cervical spine. IMPRESSION: 1. Stable right parieto-occipital arteriovenous malformation supplied by right posterior/middle cerebral arteries. 2. No acute intracranial hemorrhage or obvious infarction. Electronically Signed: Jamil Sapp MD ([place]) at 16:40 EDT Reading Location ID and State: [facility] / [place] , Service support , STUDY: CTA HEAD AND NECK WITH CONTRAST; CT BRAIN WITHOUT CONTRAST REASON FOR EXAM: Male, 76 years old. BLURRED VISION,HEADACHE RADIATION DOSAGE (If Supplied By Facility): CTDIvol = ( 44.99 ) mGy, DLP = ( 812.98 ) mGycm TECHNIQUE: Noncontrast head CT initially performed. CT angiography was performed with a multi-detector CT scanner. Data acquisition was obtained from the skull base through the vertex following intravenous administration of . MIP images were reconstructed from the axial data set. Post-processing of the angiographic images was performed, with multiplanar reformation and 3D reconstruction. Degree of stenosis (when present) measured utilizing NASCET criteria. Individualized dose optimization techniques were used for this CT. COMPARISON: MRI and CTA 11/13/2020 FINDINGS: Normal bilateral petrous carotid arteries. Normal right cavernous carotid artery with a normal supraclinoid bifurcation. Normal left cavernous carotid artery with a normal supraclinoid bifurcation. Normal right A1 segments of the anterior cerebral artery. Normal left A1 segments of the anterior cerebral artery. Normal intact anterior communicating artery (ACOM). Normal bilateral A2 segments of the anterior cerebral arteries. Hypertrophy right M1 and M2 segments of the middle cerebral arteries, with a normal M1 bifurcation (no thrombus). Distal branches supply a right parietal-occipital AVM (described below). Normal left M1 and M2 segments of the middle cerebral arteries, with a normal M1 bifurcation. Normal right posterior communicating artery (PCOM). Normal left posterior communicating artery (PCOM). Normal bilateral vertebral arteries. Normal basilar artery with a normal basilar bifurcation. The visualized bilateral superior cerebellar (SCA) arteries are normal. Normal left P1, P2 and visualized P3 segments of the posterior cerebral arteries. Right posterior cerebral artery remains hypertrophic, extending to/feeding 2.5 x 3.3 cm vascular malformation (with calcifications) in the region of the parietal-occipital lobes. There is venous drainage seen into the posterior sagittal sinus. There is no demonstrated aneurysm of the [place]. There is no demonstrated abnormality of the visualized brain. AORTIC ARCH: Normal visualized aortic arch. Normal origins of the brachiocephalic, left common carotid, and left subclavian arteries. RIGHT CAROTID ARTERIES: Normal right common carotid artery (CCA). There is mild atherosclerotic plaque formation with minimal narrowing of the right carotid bulb. Normal origin of the right internal carotid (ICA) artery without a hemodynamically significant stenosis. Normal visualized cervical portion of the right internal carotid artery. Normal origin of the right external carotid artery (ECA). LEFT CAROTID ARTERIES: Normal left common carotid artery (CCA). Normal left common carotid bulb. There is mild atherosclerotic plaque formation of the origin of the left internal carotid artery with 30% stenosis. Normal visualized cervical portion of the left internal carotid artery. Normal origin of the left external carotid artery (ECA). VERTEBRAL ARTERIES: Normal bilateral vertebral arteries. CT BRAIN: Normal soft tissue structures. Normal calvarium. Normal size ventricles and extra-axial spaces for the patient''s age. There are areas of decreased attenuation within the white matter tracts of the supratentorial brain, consistent with microvascular disease changes. Normal basal ganglia and thalami. Normal brainstem. Normal cerebellum. There is no intracranial hemorrhage. There are no findings of an acute ischemic infarction. Normal visualized paranasal sinuses. Degenerative changes of the cervical spine. CT/CTA Head AND Neck W/ Contrast IMPRESSION: 1. Stable right parieto-occipital arteriovenous malformation supplied by right posterior/middle cerebral arteries. 2. No acute intracranial hemorrhage or obvious infarction. Electronically Signed: Jamil Sapp MD ([place]) at 16:40 EDT ,
[2021-06-12 15:23] VITALS: BP 110/85; PULSE 50; RESP 16; TEMP 36.2; O2SAT 98
[2021-06-12 15:32] LABS: Absolute Lymphocyte Count 0.97 X10^3/uL (0.83-4.51); Absolute Neutrophil Count 8.5 X10^3/uL (2.0-7.7); Basophil# 0.01 X10^3/uL; Basophil% 0.1 % (0-1); Hematocrit 41.3 % (40-54); Hemoglobin 14.1 g/dL (13.0-16.5); Lymphocyte # 0.97 X10^3/ul (0.83-4.51); Lymphocyte % 9.5 % (19-41); Mean Corp Hgb Conc 34.1 g/dL (32-36); Mean Corpuscular Hgb 32.6 pg (27.0-32.0); Mean Corpuscular Volume 95.6 fL (80-94); Mean Platelet Vol. 10.4 fl (6.2-12.0); Monocyte% 6.8 % (0-10); NRBC Flagged by Analyzer 0 % (0-5); Neutrophil % 83.2 % (47-70); Platelet Count 154 K/mm3 (150-450); RBC Distribution Width CV 14.1 % (11.6-14.6); Red Blood Count 4.32 M/mm3 (4.6-6.2); White Blood Count 10.2 K/mm3 (4.4-11.0)
[2021-06-12 15:45] LABS: Anion Gap 4 (5-15); BUN 20 mg/dL (7-18); BUN/Creat Ratio 17.9 RATIO (10-20); Calcium,Total 9.4 mg/dL (8.5-10.1); Chloride 106 mmol/L (98-107); Creatinine, Serum 1.12 mg/dL (0.70-1.30); EST Glomerular Filtration Rate 67 mL/min (>60); Est Glom Filt Rate - Afr Amer 82 mL/min (>60); Estimated Creatinine Clearance 59.66 ml/min; Glucose 129 mg/dL (74-106); Potassium 4.2 mmol/L (3.5-5.1); Sodium Level 139 mmol/L (136-145)
[2021-06-12 17:14] VITALS: PULSE 40; RESP 15; O2SAT 98
--- NOTE | 2021-06-12 17:50 | EX.ED.DYSGE1 ---
HPI <NUVIA Daniels - Last Filed: 06/12/21 18:38> History of Present Illness Chief Complaint: Headache Narrative Narrative: Patient is a 76-year-old male with history of atrial fibrillation, on Eliquis, BPH presents to the emergency department with vision changes for the last 2 days. Patient was told to come to the emergency department by his PCP Dr. Henning. Patient was off his Eliquis for 8 days to receive a colonoscopy, after the colonoscopy, the patient was unable to urinate, patient now has a Luo catheter. The last 48 hours, the patient states that he has had lost his peripheral vision intermittently in both eyes as well as when he would look at an object it would change. Patient also states that this is both eyes as well. He was brought over to the emerge department for a stroke rule out. Patient denies any extremity weakness, cognitive symptoms, difficulty speaking, swallowing. Denies any fevers chills nausea vomiting PFSH <NUVIA Daniels - Last Filed: 06/12/21 18:38> [facility] Medical History (Updated 06/12/21 @ 18:[address] Steven Laguna MD) Atrial fibrillation Benign essential HTN CAD (coronary artery disease) Former smoker Heart failure HLD (hyperlipidemia) Hypothyroidism Migraines Myocardial infarct Prostate disorder Thyroid disorder Home Medications Eliquis 5 mg PO BID 11/13/20 [History Last Taken Unknown] aspirin 81 mg PO DAILY 11/13/20 [History Last Taken Unknown] atorvastatin 20 mg PO QHS 11/13/20 [History Last Taken Unknown] levothyroxine 125 mcg PO DAILY 11/13/20 [History Last Taken Unknown] lisinopril 2.5 mg PO DAILY 11/13/20 [History Last Taken Unknown] nitroglycerin 0.4 mg SUBLINGUAL PRN PRN 11/13/20 [History Last Taken Unknown] tamsulosin 0.4 mg PO DAILY 11/13/20 [History Last Taken Unknown] inulin 2 gram chewable tablet 2 g PO DAILY tab 12/23/20 [History Last Taken Unknown] Allergy/AdvReac Type Severity Reaction Status Date / Time morphine Allergy Unknown Unknown Verified 02/24/21 13:35 Family History Father No problems noted. Mother CVA (cerebral vascular accident) Surgical History History of carpal tunnel repair History of herniorrhaphy Hx of heart artery stent S/P PTCA (percutaneous transluminal coronary angioplasty) Social History Smoking Status: Former smoker pack-years: 20 Tobacco: How many years used: 20 how long ago did patient quit smoking: Quit about 35 years ago second hand exposure: No alcohol intake: never substance use type: does not use ROS <NUVIA Daniels - Last Filed: 06/12/21 18:38> ROS ED ROS Narrative Constitutional: Negative for fever, chills, weight loss or gain, weakness Eyes: Negative for vision loss, double vision. Positive for vision changes such as peripheral vision loss, distortion of objects ENT: Negative for any hearing changes, ringing in the ears, dizziness, discharge, pain Nose: Negative for any congestion, runny nose, sinus pain, allergies Throat: Negative for any sore throat hoarseness, voice changes, Cardiovascular: Negative for any chest pain, tightness, palpitations, racing heartbeat Respiratory: Negative for any coughs, sputum production, coughing, hemoptysis, shortness of breath, shortness of breath on exertion, Gastrointestinal: Negative for any abdominal pain, nausea, vomiting, diarrhea, constipation, blood in stool, blood in vomit : Negative for any urinary frequency, incontinence, dysuria, retention, blood in urine Muscle skeletal: Negative for any muscle joint pain, stiffness, myalgias, arthralgias, neck pain, back pain Neurological: Negative for any head injury, dizziness, syncope, numbness or tingling. Positive for headache Skin: Negative for any rashes, lumps, itching, abrasions, lacerations Psychiatric: Negative for any depression, anxiety, stress, suicidal ideation, homicidal ideation Hematologic: Negative for any easy bruising, excessive bruising, easy bleeding Allergies: Negative for any eczema, hives, rash EXAM <NUVIA Daniels - Last Filed: 06/12/21 18:38> Physical Exam Const Vital Signs: 06/12/21 15:06 06/12/21 15:23 06/12/21 17:14 Temperature 97.2 F L 97.2 F L Temperature Source Temporal Temporal Pulse Rate 50 L 50 L 40 L Respiratory Rate 16 16 15 Blood Pressure 110/85 H 110/85 H Blood Pressure Mean 93 93 Pulse Ox 98 98 98 Oxygen Delivery Method Room Air Room Air Room Air Positive well nourished and well developed General Appearance ED: well developed Eyes PERRL and EOMs intact bilaterally Eyes Narrative: Visual exam was completed, patient had no loss of peripheral vision on exam. Patient had no palsy, EOMs are intact. Neck no lymphadenopathy and supple Chest Wall inspection of chest normal and palpation of chest normal Resp normal respiratory effort and clear to auscultation bilaterally Cardio Rate: bradycardia GI normal to inspection, nondistended, normoactive bowel sounds, non-tender and non-distended Palpation: soft Back/Spine no CVA tenderness Extremity normal to inspection Neuro oriented x3 and CN's II-XII intact bilaterally Neuro Narrative: NIH score 0 Sensorium / Orientation: alert Psych mental status grossly normal Skin no rashes or lesions noted <Dr. Steven Laguna MD - Last Filed: 06/12/21 18:36> Physical Exam Const Vital Signs: 06/12/21 15:06 06/12/21 15:23 06/12/21 17:14 Temperature 97.2 F L 97.2 F L Temperature Source Temporal Temporal Pulse Rate 50 L 50 L 40 L Respiratory Rate 16 16 15 Blood Pressure 110/85 H 110/85 H Blood Pressure Mean 93 93 Pulse Ox 98 98 98 Oxygen Delivery Method Room Air Room Air Room Air [facility] <NUVIA Daniels - Last Filed: 06/12/21 18:38> [facility] Narrative Medical decision making narrative: Patient appears well, patient appears nontoxic, vital signs are stable. Patient presents to the emergency department with complaints of vision change the last 2 days as well as a posterior headache. He was brought over by his PCP for a stroke work-up. Patient did receive a CTA of the head and neck, these were unremarkable for any acute process. Patient's laboratory studies were grossly unremarkable. Patient has a stable right parietal occipital anterio venous malformation applied by the right posterior/middle cerebral arteries. No acute intracranial hemorrhage or obvious infarction. At this time, there is little evidence for an acute CVA/TIA. I believe this is an ophthalmology issue, patient will follow up with [facility] tomorrow and instructed to return for any worsening symptoms. At this time, patient is agreed with the plan, patient will follow up closely outpatient. Patient given strict return precautions to return for any worsening visual changes, weakness to her lower extremities, difficulty speaking, with facial droop. Lab Data Labs: Laboratory Results - last 24 hr 06/12/21 06/12/21 15:22 15:22 WBC 10.2 RBC 4.32 L Hgb 14.1 Hct 41.3 MCV 95.6 H MCH 32.6 H MCHC 34.1 RDW Std Deviation 50.0 H RDW Coeff of Stefano 14.1 Plt Count 154 MPV 10.4 Immature Gran % (Auto) 0.400 Neut % (Auto) 83.2 H Lymph % (Auto) 9.5 L [place] % (Auto) 6.8 Eos % (Auto) 0.0 Baso % (Auto) 0.1 Absolute Neuts (auto) 8.5 H Absolute Lymphs (auto) 0.97 Nucleated RBC % 0 Sodium 139 Potassium 4.2 Chloride 106 Carbon Dioxide 29.0 Anion Gap 4 L BUN 20 H Creatinine 1.12 Estim Creat Clear Calc 59.66 Est GFR (MDRD) Af Amer 82 Est GFR (MDRD) Non-Af 67 BUN/Creatinine Ratio 17.9 Glucose 129 H Calcium 9.4 Radiography Diagnostic Testing: Clinical Impression(s) from Imaging Studies Head/Neck CTA 06/12/21 15:13 IMPRESSION: 1. Stable right parieto-occipital arteriovenous malformation supplied by right posterior/middle cerebral arteries. 2. No acute intracranial hemorrhage or obvious infarction. Electronically Signed: Jamil Sapp MD ([place]) at 16:40 EDT , <Dr. Steven Laguna MD - Last Filed: 06/12/21 18:36> [facility] Narrative Medical decision making narrative: 68-year-old male with mild headache and visual changes. Is been going on for several days. Patient has known history of A. fib for which he is on Eliquis for recent a colonoscopy so was taken off Eliquis he is also had post colonoscopy urinary retention which he is seeing urologist for currently has a Luo catheter. Physical exam is a older male no acute distress vital signs stable afebrile. Exam normal. No facial droop. Extraocular motions intact. Funduscopic exam on room able secondary to pinpoint pupils. Lungs are clear. Abdomen soft. Moving all 4 extremities. Neuro exam normal. NIH 0. Evaluate this patient with our nurse practitioner. CAT scans negative. Labs are unremarkable. He will be discharged home with follow-up with ophthalmology. Lab Data Labs: Laboratory Results - last 24 hr 06/12/21 06/12/21 15:22 15:22 WBC 10.2 RBC 4.32 L Hgb 14.1 Hct 41.3 MCV 95.6 H MCH 32.6 H MCHC 34.1 RDW Std Deviation 50.0 H RDW Coeff of Stefano 14.1 Plt Count 154 MPV 10.4 Immature Gran % (Auto) 0.400 Neut % (Auto) 83.2 H Lymph % (Auto) 9.5 L Cla[place]on % (Auto) 6.8 Eos % (Auto) 0.0 Baso % (Auto) 0.1 Absolute Neuts (auto) 8.5 H Absolute Lymphs (auto) 0.97 Nucleated RBC % 0 Sodium 139 Potassium 4.2 Chloride 106 Carbon Dioxide 29.0 Anion Gap 4 L BUN 20 H Creatinine 1.12 Estim Creat Clear Calc 59.66 Est GFR (MDRD) Af Amer 82 Est GFR (MDRD) Non-Af 67 BUN/Creatinine Ratio 17.9 Glucose 129 H Calcium 9.4 Radiography Diagnostic Testing: Clinical Impression(s) from Imaging Studies Head/Neck CTA 06/12/21 15:13 IMPRESSION: 1. Stable right parieto-occipital arteriovenous malformation supplied by right posterior/middle cerebral arteries. 2. No acute intracranial hemorrhage or obvious infarction. Electronically Signed: Jamil Sapp MD ([place]) at 16:40 EDT Reading Location ID and State: [facility] / [place] , Service support , Discharge Plan Triage Chief Complaint: Headache ED Midlevel Provider: Shamar Fisher ED Provider: Steven Laguna Dx/Rx/DC Orders Clinical Impression: Changes in vision, History of atrial fibrillation Instructions: How the Eye Works, Understanding Vision Problems Prescriptions: No Action Fiber Gummies 2 gram tablet,chewable 2 g PO DAILY RF: 0 atorvastatin 20 mg tablet 20 mg PO QHS RF: 0 tamsulosin 0.4 mg capsule 0.4 mg PO DAILY RF: 0 levothyroxine 125 mcg tablet 125 mcg PO DAILY RF: 0 nitroglycerin 0.4 mg tablet, sublingual 0.4 mg sublingual PRN PRN (Reason: Chest Pain) RF: 0 lisinopril 2.5 mg tablet 2.5 mg PO DAILY RF: 0 Eliquis 5 mg Tablet 5 mg PO BID RF: 0 aspirin 81 mg Capsule 81 mg PO DAILY RF: 0 Primary Care Provider: Imer Cruz Referrals: Imer Cruz MD [Primary Care Provider] - Ravinder Mobley MD [STAFF PHYSICIAN] - Activity Restrictions/Additional Instructions: Please follow-up with ophthalmology as soon as possible. Please return for any worsening or concerning symptoms. Print Language: Kazakh Disposition Disposition: Home, Self Care
[2021-06-12 18:45] VITALS: BP 167/87; PULSE 47; RESP 15; O2SAT 99
== END 2021-06-12 18:46 | disposition home or self-care (01) ==
PROVIDERS: Emergency Provider Emergency Medicine; PCP Family Medicine; Visit Provider Emergency Medicine
DX: H53.9 Unspecified visual disturbance (principal); I25.10 Atherosclerotic heart disease of native coronary artery without angina pectoris; I25.2 Old myocardial infarction; Z87.891 Personal history of nicotine dependence; Z79.01 Long term (current) use of anticoagulants; Z95.5 Presence of coronary angioplasty implant and graft
CPT/HCPCS: 70496; 70498; 80048; 85025; 99283; Q9967; A4216

== ENCOUNTER 2022-06-12 12:38 | Emergency (ER) | payer OTHER, SELFPAY ==
[2022-06-12 12:39] VITALS: BP 96/63; PULSE 63; RESP 14; TEMP 36.6; O2SAT 96; BMI 28.0
--- NOTE | 2022-06-12 13:39 | EDS_ITS ---
HPI HPI - Fall History of Present Illness Chief Complaint: Fall Narrative Narrative: 77-year-old male who is accompanied by his son presents to the ED with right hip/right leg pain after mechanical fall from standing. Patient denies any head trauma or loss of consciousness. Notes his right leg was caught underneath him could not move forward and he bent over very quickly causing pain in the right hip. Denies any injury to the hip in the past. Denies any numbness, tingling or loss of sensation. Patient denies any saddle anesthesia, urinary tension, bowel or bladder incontinence, lower extremity weakness, fever or IV drug use, no recent spinal manipulation or surgery, no recent urinary catheterization. [facility] Medical History (Updated 06/12/22 @ 15:[address] Nghia Benson DO) Atrial fibrillation Benign essential HTN CAD (coronary artery disease) Former smoker Heart failure HLD (hyperlipidemia) Hypothyroidism Migraines Myocardial infarct Prostate disorder Thyroid disorder Home Medications apixaban 5 mg tablet (Eliquis) 5 mg PO BID blood thinner 11/13/20 [History Last Taken Unknown] aspirin 81 mg capsule 81 mg PO DAILY baby asa 11/13/20 [History Last Taken Unknown] atorvastatin 20 mg tablet 20 mg PO QHS cholesterol 11/13/20 [History Last Taken Unknown] levothyroxine 125 mcg tablet 125 mcg PO DAILY thyroid 11/13/20 [History Last Taken Unknown] lisinopril 2.5 mg tablet 2.5 mg PO DAILY blood pressure 11/13/20 [History Last Taken Unknown] nitroglycerin 0.4 mg sublingual tablet 0.4 mg sublingual PRN PRN Chest Pain 11/13/20 [History Last Taken Unknown] tamsulosin 0.4 mg capsule 0.4 mg PO DAILY bladder 11/13/20 [History Last Taken Unknown] inulin 2 gram chewable tablet (Fiber Gummies) 2 g PO DAILY 12/23/20 [History Last Taken Unknown] oxycodone 5 mg capsule 5 mg PO Q6H PRN pain 3 days #12 caps 06/12/22 [Rx Last Taken Unknown] Allergy/AdvReac Type Severity Reaction Status Date / Time morphine Allergy Unknown Unknown Verified 06/12/22 12:39 Family History Father No problems noted. Mother CVA (cerebral vascular accident) Surgical History History of carpal tunnel repair History of herniorrhaphy Hx of heart artery stent S/P PTCA (percutaneous transluminal coronary angioplasty) Social History Smoking Status: Former smoker pack-years: 20 Tobacco: How many years used: 20 how long ago did patient quit smoking: Quit about 35 years ago second hand exposure: No alcohol intake: never substance use type: does not use ROS ROS ED ROS Narrative Constitutional: Denies fever HEENT: Denies sore throat Neck: Denies neck pain Cardiovascular: Denies chest pain, syncope Respiratory: Denies shortness of breath GI: Denies nausea vomiting or abdominal pain : Denies changes in urinary habits Musculoskeletal: Endorses right-sided low back and leg pain Neurologic: Denies numbness weakness or loss of sensation Skin denies rash EXAM Physical Exam Narrative Exam Narrative: Primary Survey Airway: Intact Breathing: Bilateral breath sounds Circulation: Palpable bilateral femorals, Palpable bilateral radial, Palpable bilateral DP and Palpable bilateral PT Disability / Spine precautions GCS Score: Eye Openin Verbal Response: 5 Motor Response: 6 Secondary Survey Constitutional: Please see MDM Head: Atraumatic, Midface stable, NO jaw malocclusion, No Cephalohematoma, and No Lacerations noted Eye: Pupils equal round and reactive to light, Extraocular muscles intact and No periorbital ecchymosis or stepoff, no evidence of entrapment ENT: Oropharynx clear, no lacerations, no hemotympanum, no raccoon eyes or okeefe sign Cervical spine / Neck: No cervical spine bony tenderness, crepitance, or stepoff deformity Trachea midline Lungs: Clear to auscultation, No asymmetric rise and No crepitus, no flail chest Cardiac: Regular rate and rhythm and No murmurs Abdomen: Soft, Nontender and No rebound Pelvis: Pelvis stable to compression : No evidence of genital injury Back: No midline bony tenderness to thoracic/lumbar/sacral spines Neuro: At baseline, intact strength and sensation in bilateral upper and lower extremities. 2+ patellar reflexes bilaterally. Extremities: NO gross Deformities, TTP over right hip, right greater trochanter, right hamstrings, right IT band. Intact flexion extension of bilateral knees. Intact internal/external rotation flexion extension of bilateral hips. Psych: Normal affect Nursing triage notes reviewed, Vital signs reviewed Const Vital Signs: 06/12/22 12:39 Temperature 98 F Temperature Source Temporal Pulse Rate 63 Respiratory Rate 14 Blood Pressure 96/63 Blood Pressure Mean 74 Pulse Ox 96 Oxygen Delivery Method Room Air MDM MDM MDM Narrative Medical decision making narrative: Chief Complaint: Fall External records reviewed: No recent advanced imaging of the right hip, right femur I considered the following differential diagnosis: Right hip fracture, right femur fracture, right knee fracture, musculoskeletal injury, muscle strain I obtained x-rays of the involved extremities which showed no evidence of acute traumatic injury. I suspect the patient is suffering from a hamstring muscle strain. I asked multiple times if this particular fall cause any head trauma patient denied. He is approved for discharge home with oral narcotics, instructions to take ibuprofen and Tylenol, instructions to stretch and rehab once acute inflammatory phase is passed. He was also instructed follow-up with his primary care physician to return if symptoms change or worsen in any way Factors affecting care: History of A-fib on Claro Social determinants of health: Former smoker History obtained from others: The patient's son Shared decision making: I will have a discussion with the patient and or visitors regarding risk/benefits of further testing or admission. They will be made aware of of the risk/benefits inherent in this decision they will be given the opportunity to voice understanding. Consults: None Radiography Diagnostic Testing: Clinical Impression(s) from Imaging Studies Hip/Pelvis X-Ray 06/12/22 14:30 IMPRESSION: Mild degenerative changes of the hip joints. Electronically Signed: Jacinto Diaz MD at 14:54 EDT , Knee X-Ray 06/12/22 14:30 IMPRESSION: Degenerative arthrosis. Electronically Signed: Jacinto Diaz MD at 14:53 EDT , Treatment and Re-Evaluation Narrative: Patient was ambulatory here in the emergency department appropriate for discharge home. Discharge Plan Triage Chief Complaint: Fall ED Provider: Nghia Benson Dx/Rx/DC Orders Clinical Impression: Hamstring muscle strain Instructions: ED Muscle Strain, Extremity Prescriptions: New oxycodone 5 mg capsule 5 mg PO Q6H PRN (Reason: pain) 3 Days Qty: 12 0RF No Action Fiber Gummies 2 gram tablet,chewable 2 g PO DAILY atorvastatin 20 mg tablet 20 mg PO QHS tamsulosin 0.4 mg capsule 0.4 mg PO DAILY levothyroxine 125 mcg tablet 125 mcg PO DAILY nitroglycerin 0.4 mg tablet, sublingual 0.4 mg sublingual PRN PRN (Reason: Chest Pain) lisinopril 2.5 mg tablet 2.5 mg PO DAILY Eliquis 5 mg Tablet 5 mg PO BID aspirin 81 mg Capsule 81 mg PO DAILY Primary Care Provider: Imer Cruz Referrals: Imer Cruz MD [Primary Care Provider] -
--- NOTE | 2022-06-12 14:30 | RAD_ITS ---
STUDY: X-RAY - PELVIS AND RIGHT HIP REASON FOR EXAM: Male, 77 years old. Hip pain after fall TECHNIQUE: 3 views of the pelvis and hip. COMPARISON: None. FINDINGS: Large amount of fecal material is seen in the visualized colon. Normal visualized soft tissue structures. Normal bilateral iliac wings, sacroiliac joints and visualized sacrum. Normal bilateral superior and inferior pubic rami. There are degenerative changes of the pubic symphysis with articular narrowing and sclerosis. Normal bilateral ischial tuberosities. Normal visualized femoral head. Normal acetabulum. There is mild articular joint space narrowing of the hip. RAD/HIP, UNI W/ Pelvis 2-3 Views IMPRESSION: Mild degenerative changes of the hip joints. Electronically Signed: Jacinto Diaz MD at 14:54 EDT ,
--- NOTE | 2022-06-12 14:30 | RAD_ITS ---
STUDY: X-RAY - RIGHT KNEE REASON FOR EXAM: Male, 77 years old. Knee pain following a fall. TECHNIQUE: 2 view(s) of the knee. COMPARISON: None. FINDINGS: Normal visualized distal femur. Normal visualized proximal tibia and fibula. Normal proximal tibiofibular articulation. There is moderate degenerative arthrosis of the medial femorotibial compartment with moderate joint space narrowing. Normal lateral femorotibial compartment. Normal patellofemoral articulation. There are atherosclerotic calcifications. RAD/Knee 1 or 2 Views IMPRESSION: Degenerative arthrosis. Electronically Signed: Jacinto Diaz MD at 14:53 EDT ,
[2022-06-12] MEDS: Acetaminophen 325 MG Tablet PO (15:15)
[2022-06-12] MEDS: oxyCODONE 5 MG Tablet PO (15:15)
[2022-06-12] MEDS: Ibuprofen 200 MG Tablet 400 MG PO (15:16)
[2022-06-12] MEDS: diazePAM 2 MG Tablet PO (16:13)
[2022-06-12 16:15] VITALS: BP 114/70; PULSE 77; RESP 16; O2SAT 100
== END 2022-06-12 16:16 | disposition home or self-care (01) ==
PROVIDERS: Emergency Provider Emergency Medicine; PCP Family Medicine; Visit Provider Emergency Medicine
DX: S76.311A Strain of muscle, fascia and tendon of the posterior muscle group at thigh level, right thigh, initial encounter (principal); I50.9 Heart failure, unspecified; I25.10 Atherosclerotic heart disease of native coronary artery without angina pectoris; I25.2 Old myocardial infarction; Z95.5 Presence of coronary angioplasty implant and graft; W19.XXXA Unspecified fall, initial encounter; Z87.891 Personal history of nicotine dependence
CPT/HCPCS: 73502; 73560; 99283

== ENCOUNTER → 2023-02-04 | Outpatient (CLI) | payer MEDICARE, SELFPAY ==
[2023-02-04 13:04] LABS: Anion Gap 3 (5-15); BUN 21 mg/dL (7-18); BUN/Creat Ratio 19.8 RATIO (10-20); Calcium,Total 8.8 mg/dL (8.5-10.1); Chloride 111 mmol/L (98-107); Cholesterol 119 mg/dL (200); Creatinine, Serum 1.06 mg/dL (0.70-1.30); EST Glomerular Filtration Rate 72 mL/min (>60); Est Glom Filt Rate - Afr Amer 87 mL/min (>60); Free T3 2.3 pg/mL (2.18-3.98); Glucose 84 mg/dL (74-106); High Density Lipoprotein 59 mg/dL; Potassium 4.2 mmol/L (3.5-5.1); Sodium Level 141 mmol/L (136-145); T4 Free Direct 1.17 ng/dL (0.76-1.46); Thyroid Stim Hormone (TSH) 2.01 uIU/mL (0.358-3.74); Triglycerides 54 mg/dL; Very Low Density Lipoprotein 11 mg/dL (5-40)
== END | disposition home or self-care (01) ==
LOC: MFPLAB 11:12
PROVIDERS: PCP Family Medicine; Visit Provider Family Medicine
DX: I10 Essential (primary) hypertension (principal); E03.9 Hypothyroidism, unspecified
CPT/HCPCS: 36415; 80048; 80061; 84439; 84443; 84481

== ENCOUNTER → 2023-07-26 | Outpatient (CLI) | payer MEDICARE, SELFPAY ==
[2023-07-26 18:14] LABS: Anion Gap 6 (5-15); BUN 20 mg/dL (7-18); BUN/Creat Ratio 17.7 RATIO (10-20); Chloride 109 mmol/L (98-107); Creatinine, Serum 1.13 mg/dL (0.70-1.30); EST Glomerular Filtration Rate 66 mL/min (>60); Est Glom Filt Rate - Afr Amer 80 mL/min (>60); Free T3 2.3 pg/mL (2.18-3.98); Glucose 98 mg/dL (74-106); Sodium Level 140 mmol/L (136-145); Thyroid Stim Hormone (TSH) 0.58 uIU/mL (0.358-3.74)
== END | disposition home or self-care (01) ==
LOC: MFPLAB 16:25
PROVIDERS: PCP Family Medicine; Visit Provider Family Medicine
DX: I10 Essential (primary) hypertension (principal); E03.9 Hypothyroidism, unspecified
CPT/HCPCS: 36415; 80048; 84439; 84443; 84481

== ENCOUNTER → 2024-01-25 | Outpatient (CLI) | payer MEDICARE, SELFPAY ==
[2024-01-25 10:58] LABS: Anion Gap 6 (5-15); BUN 19 mg/dL (7-18); BUN/Creat Ratio 17.6 RATIO (10-20); Calcium,Total 8.9 mg/dL (8.5-10.1); Chloride 108 mmol/L (98-107); Cholesterol 112 mg/dL (200); Creatinine, Serum 1.08 mg/dL (0.70-1.30); EST Glomerular Filtration Rate 70 mL/min (>60); Est Glom Filt Rate - Afr Amer 84 mL/min (>60); Free T3 2.4 pg/mL (2.18-3.98); Glucose 92 mg/dL (74-106); High Density Lipoprotein 60 mg/dL; Potassium 4.2 mmol/L (3.5-5.1); Sodium Level 141 mmol/L (136-145); T4 Free Direct 1.36 ng/dL (0.76-1.46); Thyroid Stim Hormone (TSH) 0.381 uIU/mL (0.358-3.740); Triglycerides 57 mg/dL; Very Low Density Lipoprotein 11 mg/dL (5-40)
== END | disposition home or self-care (01) ==
LOC: MFPLAB 08:49
PROVIDERS: PCP Family Medicine; Visit Provider Family Medicine
DX: E03.9 Hypothyroidism, unspecified (principal); E78.5 Hyperlipidemia, unspecified
CPT/HCPCS: 36415; 80048; 80061; 84439; 84443; 84481

== ENCOUNTER → 2025-02-26 | Outpatient (CLI) | payer MEDICARE, SELFPAY ==
[2025-02-26 15:41] LABS: CRP 30.50 mg/L (0.0-3.0)
[2025-02-28 15:09] LABS: ANTINUCLEAR ANTIBODIES DIRECT Negative (Negative)
== END | disposition home or self-care (01) ==
LOC: MFPLAB 12:28
PROVIDERS: PCP Family Medicine; Visit Provider Family Medicine
DX: M79.89 Other specified soft tissue disorders (principal)
CPT/HCPCS: 36415; 85652; 86038; 86140; 86431